=== PATIENT | female | born 1980 | race Caucasian/White ===

== ENCOUNTER 2023-01-19 20:24 | Outpatient (REF) | payer OTHER, SELFPAY ==
[2023-01-26 15:11] LABS: Age Gdln ACOG Testing Note (.); HPV Aptima Positive (Negative); IGP, Aptima HPV, rfx 16/18,45 Note (.)
== END 2023-01-19 20:25 | disposition home or self-care (01) ==
LOC: LAB 20:24
PROVIDERS: Visit Provider Obstetrics & Gynecology
DX: Z12.4 Encounter for screening for malignant neoplasm of cervix (principal)
CPT/HCPCS: 87624; G0145

== ENCOUNTER 2023-08-10 19:29 | Outpatient (REF) | payer OTHER, SELFPAY ==
[2023-08-18 02:07] LABS: HPV Aptima Positive (Negative); Pap IG (Image Guided) Note (.)
== END 2023-08-10 19:30 | disposition home or self-care (01) ==
LOC: LAB 19:29
PROVIDERS: Visit Provider Obstetrics & Gynecology
DX: Z01.42 Encounter for cervical smear to confirm findings of recent normal smear following initial abnormal smear (principal); R87.610 Atypical squamous cells of undetermined significance on cytologic smear of cervix (ASC-US); R87.810 Cervical high risk human papillomavirus (HPV) DNA test positive
CPT/HCPCS: 87624; G0145

== ENCOUNTER 2023-09-22 11:23 | Outpatient (OUT) | payer OTHER, SELFPAY ==
--- NOTE | 2023-09-22 11:31 | MM_ITS ---
Patient Name: MELVINA CORONADO MR#: [id number] : 1980 Exam Date: 09/22/2023 Ordering Doctor: DR Kevan Haskins . RADIOLOGY REPORT PROCEDURE: MM TOMOSYNTHESIS SCREENING BI COMPARISON: MG MAMM SCREEN 3D MAGNO CAD, 04/08/2021. MG MAMM SCREEN 3D MAGNO CAD, 05/13/2022. INDICATIONS: Screening Calculator Name NCI Breast Cancer Risk Assessment Tool 5 Year Breast Cancer Risk 0.60% Lifetime Breast Cancer Risk 8.80% Personal Breast Cancer No Personal Ovarian Cancer No Treatments None Family Cancers Grandmother-maternal with lung cancer at age ~70; Grandfather-paternal with prostate/colon cancer at age ~70. LOCATION: [facility] BREAST COMPOSITION: The breasts are heterogeneously dense,which may obscure small masses. FINDINGS: DIAGNOSTIC CATEGORY 2--BENIGN FINDING. NO CHANGE FROM COMPARISON. Scattered benign-appearing nodules are present. Scattered benign-appearing calcifications are present. Scattered benign-appearing lymph nodes are present. RIGHT BREAST: No significant suspicious finding. LEFT BREAST: No significant suspicious finding. RECOMMENDATIONS: ROUTINE MAMMOGRAM AND CLINICAL EVALUATION IN 12 MONTHS. PLEASE NOTE: A NORMAL MAMMOGRAM DOES NOT EXCLUDE THE POSSIBILITY OF BREAST CANCER. A CLINICALLY SUSPICIOUS PALPABLE LUMP SHOULD BE BIOPSIED. Dictated by: Naun Shetty MD on 09/22/2023 at 13:16 Approved by: Naun Shetty MD on 09/22/2023 at 13:18
== END 2023-09-22 11:24 | disposition home or self-care (01) ==
LOC: MAMMO 11:27
PROVIDERS: Visit Provider Obstetrics & Gynecology
DX: Z12.31 Encounter for screening mammogram for malignant neoplasm of breast (principal); Z80.1 Family history of malignant neoplasm of trachea, bronchus and lung; Z80.0 Family history of malignant neoplasm of digestive organs
CPT/HCPCS: 77063; 77067

== ENCOUNTER 2024-02-19 20:05 | Outpatient (REF) | payer OTHER, SELFPAY ==
--- OUTSIDE RECORDS SUMMARY | 2024-02-19 20:07 | XMS_ITS | CCD ---
Author Organization [facility] Care Team Providers Care Hose Tester Name Role Phone HÉCTOR ., DR MACDONALD Admitting Unavailable HÉCTOR ., DR MACDONALD Attending Unavailable HÉCTOR ., DR MACDONALD Consulting Unavailable ZIEBER, DR BAR Katz Consulting Unavailable HÉCTOR ., DR MACDONALD Admitting Unavailable HÉCTOR ., DR MACDONALD Attending Unavailable HÉCTOR ., DR MACDONALD Consulting Unavailable FREEMAN JACOME Attending Unavailable FREEMAN JACOME Referring Unavailable MARQUIS HERNANDEZ Primary Care Unavailable TORRES ANAYA Attending Unavailable Problems Active Problems Problem Classification Problem Date Documented Date Episodic/Chronic Immunizations and screening for infectious disease (2 sources) Encounter for screening for human papillomavirus (HPV); Translations: [Encounter for screening for infections with a predominantly sexual mode of transmission] Onset: 06-01-2022 Episodic Other female genital disorders (1 source) Other specified noninflammatory disorders of vagina; Translations: [OTH SPEC NONINFLAMMATORY D/O VAGINA] Onset: 06-01-2022 Episodic Other screening for suspected conditions (not mental disorders or infectious disease) (8 sources) Encounter for screening for malignant neoplasm of cervix; Translations: [Encounter for screening mammogram for malignant neoplasm of breast] Onset: 05-13-2022 Episodic Residual codes; unclassified (1 source) Family history of malignant neoplasm of trachea, bronchus and lung; Translations: [FAM HX MALIG NEOPLSM TRACH BRON LNG] Onset: 05-15-2022 Episodic Residual codes; unclassified (1 source) Family history of malignant neoplasm of digestive organs; Translations: [FAM HX MALIG NEOPLASM DIGESTIV ORGN] Onset: 05-15-2022 Episodic Past or Other Problems Problem Classification Problem Date Documented Da te Episodic/Chronic Calculus of urinary tract (1 source) Calculus of kidney; Translations: [Calculus of kidney] Onset: 07-05-2022 Episodic Results Test Name Value Interpretation Reference Range Facil ity XR ABDOMEN AP 1 VWon 024 XR ABDOMEN AP 1 VW XR ABDOMEN AP 1 VW XR ABDOMEN 1 VIEW HISTORY: Left-sided kidney stone COMPARISON: CT abdomen/pelvis 10/05/2022 IMPRESSION: * No radiopaque urinary tract stones. * Small calcified phleboliths in the pelvis. Finalized by Wang Cruz MD on 06/28/2023 8:15 AM Normal [facility] PAP ACOG PANEL 2: 30 to 65on 06-08-2022 . . Normal [facility] Comment on above: Result Comment: Perf ormed at: [facility] Performed By: #### [id number] #### [facility] [address] [address] [address] Kitty Arguello Age Gdln ACOG Testing 30-65 [facility] Comment on above: Performed By: #### [id number] #### [facility] [address] [address] [address] Kitty Arguello DIAGNOSIS: Comment Normal [facility] Comment on above: Result Comment: NEGA TIVE FOR INTRAEPITHELIAL LESION OR MALIGNANCY. Performed at: [facility] Performed By: #### [id number] #### [facility] [address] [address] [address] Kitty Arguello HPV Aptima Positive Abnormal Negative [facility] Comment on above: Result Comment: This nucleic acid amplification test detects fourteen high-risk HPV types (16,18,31,33,35,39,45,51,52,56,58,59,66,68) without differentiation. Performed at: =G Performed By: #### [id number] #### [facility] [address] [address] [address] Kitty Arguello HPV Genotype 16 Positive Abnormal Negative [facility] Comment on above: Performed By: #### [id number] #### [facility] [address] [place] [address] Dr. Kitty Arguello HPV Genotype 18,45 Negative Normal Negative [facility] Comment on above: Performed By: #### [id number] #### [facility] [address] [address] [address] Kitty Arguello HPV Genotype Reflex Comment Normal [facility] Comment on above: Result Comment: Guillermo choudhary, see HPV Genotype results. Performed at: [facility] Performed By: #### [id number] #### [facility] [address] [place] [address] Dr. Kitty Arguello Methodology: Comment Normal [facility] Comment on above: Result Comment: This liquid based ThinPrep(R) pap test was screened with the use of an image guided system. Performed at: [facility] Performed By: #### [id number] #### [facility] [address] [place] [address] Dr. Kitty Arguello Note: Comment Normal [facility] Comment on above: Result Comment: The Pap smear is a screening test designed to aid in the detection of premalignant and malignant conditions of the uterine cervix. It is not a diagnostic procedure and should not be used as the sole means of detecting cervical cancer. Both false-positive and false-negative reports do occur. . Performed at: [facility] Performed By: #### [id number] #### [facility] [address] [place] [address] Dr. Kitty Arguello Performed by: Comment Normal [facility] Comment on above: Result Comment: Austen Robles, [employer] ([employer]) Performed at: [facility] Performed By: #### [id number] #### [facility] [address] [place] [address] Dr. Kitty Arguello Specimen adequacy: Comment Normal [facility] Comment on above: Result Comment: Sati sfactory for evaluation. Endocervical and/or squamous metaplastic cells (endocervical component) are present. Performed at: [facility] Performed By: #### [id number] #### [facility] [address] [place] [address] Dr. Kitty Arguello CHLAMYDIA/GONOCOCCUS [facility] (SW AB/URINE/PAPon 06-02-2022 Neisseria gonorrhoeae, [facility] Negative Normal Negative [facility] Comment on above: Performed By: #### C T/NGNA #### [facility] [address] [place] [address] Dr. Kitty Arguello Chlamydia trachomatis, [facility] Negative Normal Negative [facility] Comment on above: Performed By: #### C T/NGNA #### [facility] [address] [address] [address] Kitty Arguello VAGINITIS/VAGINOSIS DNA PROB Sagar 06-02-2022 Yesika species Negative Normal Negative [facility] Comment on above: Performed By: #### V AGINT #### [facility] [address] [address] [address] Kitty Arguello Gardnerella vaginalis Negative Normal Negative [facility] Comment on above: Performed By: #### V AGINT #### [facility] [address] [address] [address] Kitty Arguello Trichomonas vaginalis Negative Normal Negative [facility] Comment on above: Performed By: #### V AGINT #### [facility] [address] [address] [address] Kitty Arguello MG MAMM SCREEN 3D MAGNO CADon 05-13-2022 MG MAMM SCREEN 3D MAGNO CAD Patient: MELVINA CORONADO Exam Date: 05/13/2022 : 1980 Gender:F Ordering : DR TORRES ANAYA . Admission #: [id number] Family : Order #: [id number] CLICK HERE TO VIEW EXAM RADIOLOGY REPORT PROCEDURE: MAMMOGRAM SCREENING 3D BILATERAL CAD COMPARISON: MG MAMM SCREEN 3D MAGNO CAD, 04/08/2021. INDICATIONS: Screening mammography Calculator Name NCI Breast Cancer Risk Assessment Tool 5 Year Breast Cancer Risk 0.50% Lifetime Breast Cancer Risk 9.00% Personal Breast Cancer No Personal Ovarian Cancer No Treatments None Family Cancers Grandmother-maternal with lung cancer at age 70; Grandfather-paternal with prostate/colon cancer at age 70. LOCATION: [facility] BREAST COMPOSITION: Heterogeneously dense,which may obscure small masses. FINDINGS: DIAGNOSTIC CATEGORY 2--BENIGN FINDING: RIGHT BREAST: No significant suspicious finding. No significant change has occurred. LEFT BREAST: No significant suspicious finding. Stable small benign appearing lymph node within the axillary tail. No significant change has occurred. RECOMMENDATIONS: ROUTINE MAMMOGRAM AND CLINICAL EVALUATION IN 12 MONTHS. PLEASE NOTE: A NORMAL MAMMOGRAM DOES NOT EXCLUDE THE POSSIBILITY OF BREAST CANCER. A CLINICALLY SUSPICIOUS PALPABLE LUMP SHOULD BE BIOPSIED. Dictated by: Bar Greenwood M.D. on 05/13/2022 at 09:15 Approved by: Bar Greenwood M.D. on 05/13/2022 at 09:18 Normal [facility] Encounters Encounter Date Encounter Type Care Provider Facility Start: 08-10-2023 End: 08-10-2023 ambulatory TORRES ANAYA Not Available Start: 06-27-2023 End: 06-28-2023 ambulatory FREEMAN JACOME [facility] Start: 05-31-2022 End: 05-31-[address] TORRES ANAYA . Facility: Start: 05-13-2022 End: 05-14-[address] TORRES ANAYA . Facility: Payers Date Payer Category Payer Unknown [id number] [id number] [id number] 1980 Unknown [id number] [id number] [id number] 1980 Unknown [id number] [id number] 1980 Unknown [id number] 2.16.84 [id number] 1959 Unknown [id number] Summary Purpose Family History No Family History Records FoundNo Family History Records FoundNo Family History Records Found Advance Directives No Advanced Directives Records FoundNo Advanced Directives Records FoundNo Advanced Directives Records Found Additional Source Comments INFORMATION SOURCE (unrecogn ized section and content) DATE CREATED AUTHOR 07/18/2022 [facility] DATE CREATED AUTHOR AUTHOR'S ORGANIZ ATION 07/05/2023 [facility] DATE CREATED AUTHOR AUTHOR'S ORGANIZ ATION 08/11/2023 [facility] EPIC FOR RECORDS PERTAINING TO PATIENTS WHO ARE OR HAVE BEEN ENROLLED IN A CHEMICAL DEPENDENCY/SUBSTANCEABUSE PROGRAM, SOME INFORMATION MAY BE OMITTED. This clinical summary was aggregated from multiple sources. Caution should be exercised in using it in the provision of clinical care. This summary normalizes information from multiple sources, and as a consequence, information in this document may materially change the coding, format and clinical context of patient data. In addition, data may be omitted in some cases. CLINICAL DECISIONS SHOULD BE BASED ON THE PRIMARY CLINICAL RECORDS. [facility]. provides no warranty or guarantee of the accuracy or completeness of information in this document.
== END 2024-02-19 20:06 | disposition home or self-care (01) ==
LOC: LAB 20:05
PROVIDERS: Visit Provider Obstetrics & Gynecology
DX: R87.610 Atypical squamous cells of undetermined significance on cytologic smear of cervix (ASC-US) (principal); R87.810 Cervical high risk human papillomavirus (HPV) DNA test positive
CPT/HCPCS: 87624; 88175

== ENCOUNTER 2024-10-14 20:50 | Outpatient (REF) | payer OTHER, SELFPAY ==
--- OUTSIDE RECORDS SUMMARY | 2024-10-14 21:05 | XMS_ITS | CCD ---
Author Organization [facility] Care Team Providers Care Upholsterer Apprentice Name Role Phone DIVINE ., DR MACDONALD Admitting Unavailable DIVINE ., DR MACDONALD Attending Unavailable DIVINE ., DR MACDONALD Consulting Unavailable ZIEBER, DR BAR Katz Consulting Unavailable DIVINE ., DR MACDONALD Admitting Unavailable DIVINE ., DR MACDONALD Attending Unavailable DIVINE ., DR MACDONALD Consulting Unavailable GENE FAN Attending Unavailable GENE FAN Referring Unavailable MARY SCOTT Primary Care Unavailable TORRES HASKINS Attending Unavailable TORRES HASKINS Attending Unavailable Unavailable Primary Care Provider UnavailMary Rodrigez MD Primary Care Provider [phone] Medications Current Medications Medication Drug Class(es) Dates Sig (Normalized) Sig (Original) Ethinyl Estradiol / Ferrous fumarate / Norethindrone (2 sources) Estrogen Start: 06-03-2021 take 1 tablet by mouth once daily norethindrone-e.e stradioL-iron 1 mg-20 mcg (24)/75 mg (4) capsule Take 1 tablet by mouth daily. 06/03/2021 Active Completed/Discontinued Medications Medication Drug Class(es) Dates Sig (Normalized) Sig (Original) Taysofy 1-20 MG-MCG(24) capsule (6 sources) Start: 06-30-2023 End: 10-14-2024 take 1 capsule by mouth once daily Taysofy 1-20 MG-MCG(24) capsule Indications: Well woman exam with routine gynecological exam TAKE 1 CAPSULE BY MOUTH EVERY DAY 84 capsule 6 06/30/2023 10/14/2024 Discontinued (Other) Start: 06-30-2023 take 1 capsule by [facility] once daily Taysofy 1-20 MG-MCG(24) capsule Indications: Well woman exam with routine gynecological exam TAKE 1 CAPSULE BY MOUTH EVERY DAY 84 capsule 6 06/30/2023 Active Problems Active Problems Problem Classification Problem Date Documented Date Episodic/Chronic Calculus of urinary tract (4 sources) Calculus of kidney; Translations: [Kidney stone] Onset: 06-10-2021 07-05-2024 Episodic Cancer of cervix (1 source) Atypical squamous cells of undetermined significance on cervical Papanicolaou smear; Translations: [Atypical squamous cells of undetermined significance on cytologic smear of cervix (ASC-US)] 02-19-2024 Episodic Immunizations and screening for infectious disease (3 sources) Encounter for screening for human papillomavirus (HPV); Translations: [Encounter for screening for infections with a predominantly sexual mode of transmission] Onset: 06-01-2022 02-19-2024 Episodic Other endocrine disorders (1 source) Disorder of endocrine system; Translations: [Endocrine disorder, unspecified] 10-14-2024 Episodic Other female genital disorders (1 source) Other specified noninflammatory disorders of vagina; Translations: [OTH SPEC NONINFLAMMATORY D/O VAGINA] Onset: 06-01-2022 Episodic Other female genital disorders (1 source) Vaginal discharge; Translations: [Other specified noninflammatory disorders of vagina] 02-19-2024 Episodic Other screening for suspected conditions (not mental disorders or infectious disease) (9 sources) Encounter for screening for malignant neoplasm [...] Classification Problem Date Documented Da te Episodic/Chronic Contraceptive and procreative management (6 sources) Patient encounter status; Translations: [Encounter for other general counseling and advice on contraception] Onset: 02-19-2024 02-19-2024 Episodic Results Test Name Value Interpretation Reference Range Facility PAP IG, APT HPV RFX 16/18,45 on 02-27-2024 HPV APTIMA Positive Abnormal Negative [facility] Comment on above: This nucleic acid am plification test detects fourteen high- risk HPV types (16,18,31,33,35,39,45,51,52,56,58,59,66,68) without differentiation. Performed at: - [address] [id number] [employer] Drier: Hamida Rodríguez MD, Phone: [phone] Performed at: - [facility] [id number] [employer]: Hamida Rodríguez MD, Phone: [phone] Interpretation and review of laboratory results Abnormal [facility] PAP IG (IMAGE GUIDED) Note Abnormal . [facility] Comment on above: TESTS RESULT FLAG UN ITS REF RANGE LAB Clinician Provided Cytology Information Source.............Cervix;Endocervix No. of containers..01 ThinPrep Vial DIAGNOSIS: [A] 01 EPITHELIAL CELL ABNORMALITY. LOW GRADE SQUAMOUS INTRAEPITHELIAL LESION (LSIL). ATYPICAL SQUAMOUS CELLS, CANNOT EXCLUDE HIGH-GRADE SQUAMOUS INTRAEPITHELIAL LESION (ASC-H). Specimen adequacy: 01 Satisfactory for evaluation. Endocervical and/or squamous metaplastic cells (endocervical component) are present. Performed by: 01 Danielle Rodríguez, Respiratory Care Technician (ASC) Electronically si... 01 Maddi Parada MD, Pathologist . 01 Pathologist ICD10: 01 R87.612, R87.611 Note: Note 01 The Pap smear is a screening test designed to aid in the detection of premalignant and malignant conditions of the uterine cervix. It is not a diagnostic procedure and should not be used as the sole means of detecting cervical cancer. Both false-positive and false-negative reports do occur. Test Methodology: Note 01 This liquid based ThinPrep(R) pap test was screened with the use of an image guided system. HPV Genotype Reflex Note 01 Criteria not met, HPV Genotype not performed. FLAG LEGEND: L-Low Normal,H-High Normal,LL-Alert Low,HH-Alert High <-Panic Low,>-Panic High,A-Abnormal,AA-Critical Abnormal Performed at: [address] [facility] [id number] Hamida Rodríguez MD, BRUSH-SPATULA CERVIX ENDOCERVIX [facility] URETHRITIS/DISCHARGE PLUS VA GINITIS (HTRX)on 02-20-2024 [facility] 0 [facility] AT[facility] VAGINAE Not detected [facility] BVAB 2,3 (BACTERIAL VAGINOSIS ASSOCIATED BACTERIA 2, 3); MOBILUNCUS SPP 0 [facility] BVAB 2,3 (BACTERIAL VAGINOSIS ASSOCIATED BACTERIA 2, 3); MOBILUNCUS SPP Not detected [facility] YESIKA ALBICANS, PARAPSILOSIS, TROPICALIS 0 [facility] YESIKA ALBICANS, PARAPSILOSIS, TROPICALIS Not detected [facility] YESIKA GLABRATA 0 [facility] YESIKA GLABRATA Not detected [facility] Not detected [facility] CHLAMYDIA TRACHOMATIS 0 [facility] CHLAMYDIA TRACHOMATIS Not detected [facility] GARDNERELLA VAGINALIS 0 [facility] GARDNERELLA VAGINALIS Not detected [facility] MEGASPHAERA (TYPES 1, 2) 0 [facility] MEGASPHAERA (TYPES 1, 2) Not detected [facility] MYCOPLASMA GENITALIUM 0 [facility] MYCOPLASMA GENITALIUM Not detected [facility] NEISSERIA GONORRHOEAE 0 [facility] NEISSERIA GONORRHOEAE Not detected [facility] TRICHOMONAS VAGINALIS 0 [facility] TRICHOMONAS VAGINALIS Not detected [facility] XR ABDOMEN AP 1 VWon 024 XR ABDOMEN AP 1 VW XR ABDOMEN AP 1 VW XR ABDOMEN 1 VIEW HISTORY: Left-sided kidney stone COMPARISON: CT abdomen/pelvis 10/05/2022 IMPRESSION: * No radiopaque urinary tract stones. * Small calcified phleboliths in the pelvis. Finalized by Wang Cruz MD on 06/28/2023 8:15 AM Normal [facility] PAP ACOG PANEL 2: 30 to 65on 06-08-[address] [facility] Comment on above: Result Comment: Perf ormed at: [facility] Performed By: #### [id number] #### [facility] [address] [address] [address] Kitty Arguello Age Gdln ACOG Testing 30-[address] [facility] Comment on above: Performed By: #### [id number] #### [facility] [address] [address] [address] Kitty Arguello DIAGNOSIS: Comment Normal [facility] Comment on above: Result Comment: NEGA TIVE FOR INTRAEPITHELIAL LESION OR MALIGNANCY. Performed at: [facility] Performed By: #### 4 [id number] #### [facility] [address] [address] [address] Kitty Arguello HPV Aptima Positive Abnormal Negative [facility] Comment on above: Result Comment: This nucleic acid amplification test detects fourteen high-risk HPV types (16,18,31,33,35,39,45,51,52,56,58,59,66,68) without differentiation. Performed at: =G Performed By: #### 4 [id number] #### [facility] [address] [address] [address] Kitty Arguello HPV Genotype 16 Positive Abnormal Negative [facility] Comment on above: Performed By: #### 4 [id number] #### [facility] [address] [address] [address] Kitty Arguello HPV Genotype 18,45 Negative Normal Negative [facility] Comment on above: Performed By: #### 4 [id number] #### [facility] [address] [address] [address] Kitty Arguello HPV Genotype Reflex Comment Normal [facility] Comment on above: Result Comment: Guillermo craft met, see HPV Genotype results. Performed at: [facility] Performed By: #### 4 [id number] #### [facility] [address] [place] [address] Dr. Kitty Arguello Methodology: Comment Normal [facility] Comment on above: Result Comment: This liquid based ThinPrep(R) pap test was screened with the use of an image guided system. Performed at: [facility] Performed By: #### 4 [id number] #### [facility] [address] [place] [address] Dr. Kitty Arguello Note: Comment Normal [facility] Comment on above: Result Comment: The Pap smear is a screening test designed to aid in the detection of premalignant and malignant conditions of the uterine cervix. It is not a diagnostic procedure and should not be used as the sole means of detecting cervical cancer. Both false-positive and false-negative reports do occur. . Performed at: [facility] Performed By: #### 4 [id number] #### [facility] [address] [place] [address] Dr. Kitty Arguello Performed by: Comment Normal [facility] Comment on above: Result Comment: Austen Robles, Respiratory Care Technician (ASCP) Performed at: [facility] Performed By: #### 4 [id number] #### [facility] [address] [place] [address] Dr. Kitty Arguello Specimen adequacy: Comment Normal [facility] Comment on above: Result Comment: Sati sfactory for evaluation. Endocervical and/or squamous metaplastic cells (endocervical component) are present. Performed at: [facility] Performed By: #### 4 [id number] #### [facility] [address] [address] [address] Kitty Arguello CHLAMYDIA/GONOCOCCUS [facility] (SW AB/URINE/PAPon 06-02-2022 Neisseria gonorrhoeae, [facility] Negative Normal Negative [facility] Comment on above: Performed By: #### C T/NGNA #### [facility] [address] [place] [address] Dr. Kitty Arguello Chlamydia trachomatis, [facility] Negative Normal Negative [facility] Comment on above: Performed By: #### C T/NGNA #### [facility] [address] [address] [address] Kitty Arguello VAGINITIS/VAGINOSIS DNA PROB Sagar 06-02-2022 Yesika species Negative Normal Negative [facility] Comment on above: Performed By: #### V AGINT #### [facility] [address] [address] [address] Kitty Arguello Gardnerella vaginalis Negative Normal Negative [facility] Comment on above: Performed By: #### V AGINT #### [facility] [address] [address] [address] Kitty Arguello Trichomonas vaginalis Negative Normal Negative [facility] Comment on above: Performed By: #### V AGINT #### [facility] [address] [address] [address] Kitty Arguello MG MAMM SCREEN 3D MAGNO CADon 05-13-2022 MG MAMM SCREEN 3D MAGNO CAD Patient: MELVINA CORONADO Exam Date: 05/13/2022 : 1980 Gender:F Ordering : DR TORRES HASKINS . Admission #: [id number] Family : Order #: [id number] CLICK HERE TO VIEW EXAM RADIOLOGY REPORT [...] prostate/colon cancer at age 70. LOCATION: [facility] BREAST COMPOSITION: Heterogeneously dense,which may obscure [...] Bar Greenwood M.D. on 05/13/2022 at 09:18 [facility] Vital Signs Date Time Vital Sign Value Performing Clinician Trista jackman 10-14-2024 14:16-0400 Body mass index (BMI) [Ratio] 25.15 kg/m2 Torres Divine DO Work Phone: [facility] 10-14-2024 14:16-0400 Body weight 70.67 kg Torres Divine DO Work Phone: [facility] 10-14-2024 14:16-0400 Diastolic blood pressure 70 mm[Hg] Torres Divine DO Work Phone: [facility] 10-14-2024 14:16-0400 Systolic blood pressure 112 mm[Hg] Torres Divine DO Work Phone: [facility] 02-19-2024 09:05-0400 Body mass index (BMI) [Ratio] 25.66 kg/m2 Torres Divine DO Work Phone: [facility] 02-19-2024 09:05-0400 Body weight 72.12 kg Torres Divine DO Work Phone: [facility] 02-19-2024 09:05-0400 Diastolic blood pressure 78 mm[Hg] Torres Divine DO Work Phone: [facility] 02-19-2024 09:05-0400 Systolic blood pressure 118 mm[Hg] Torres Divine DO Work Phone: [facility] Healthcare Encounters Encounter Date Encounter Type Care Provider Facility Start: 10-14-2024 End: 10-14-2024 Bamboo flowsheet Torres Divine DO Work Phone: [facility] Start: 10-14-2024 End: 10-14-2024 Bamboo flowsheet Torres Divine DO Work Phone: [facility] Start: 10-14-2024 End: 10-14-2024 Patient encounter procedure Torres Divine DO Work Phone: [facility] Work Phone: Start: 10-14-2024 End: 10-14-2024 Periodic preventive med est patient 40-64yrs Torres Divine DO Work Phone: [facility] Comment on above: Hormone disorder (Pr imary Dx); Well woman exam with routine gynecological exam; Breast cancer screening by mammogram Start: 07-05-2024 End: 07-05-2024 Orders Only Gene Fan MD Work Phone: [facility] Comment on above: Calculus of kidney ( Primary Dx) Start: 02-19-2024 End: 02-19-2024 Bamboo flowsheet Torres Divine DO Work Phone: [facility] Start: 02-19-2024 End: 02-27-2024 Bamboo flowsheet Torres Divine DO Work Phone: [facility] Start: 02-19-2024 End: 02-27-2024 [facility] Result Encounter Torres Divine DO Work Phone: [facility] Unsolicited Start: 02-19-2024 End: 02-20-2024 External Result Encounter Torres Divine DO Work Phone: [facility] Unsolicited Start: 02-19-2024 End: 02-19-2024 Office outpatient visit 15 minutes Torres Divine DO Work Phone: [facility] Comment on above: ASCUS with positive high risk HPV cervical; Screen for STD (sexually transmitted disease); Vaginal discharge; Sterilization consult Start: 02-19-2024 End: 02-19-2024 ambulatory TORRES DIVINE Not Available Start: 08-10-2023 End: 08-10-2023 ambulatory TORRES DIVINE Not Available Start: 06-27-2023 End: 06-28-2023 ambulatory GENE FAN [facility] Start: 05-31-2022 End: 05-31-[address] TORRES HASKINS . Facility: Start: 05-13-2022 End: 05-14-[address] TORRES HASKINS . Facility: Procedures Date Procedure Procedure Detail Performing Clinician Start: 02-19-2024 PAP IG, APT HPV RFX 16/18,45 Torres Haskins DO Work Phone: Start: 02-19-2024 URETHRITIS/DISCHARGE PLUS VAGINITIS (HTRX) Torres Haskins DO Work Phone: Plan of Treatment Date Care Activity Detail Author Start: 12-17-2024 End: 12-17-2024 Patient encounter procedure 12/17/2024 3:15 PM EDT Office Visit [facility] [address] [place] [phone] Gene Fan MD [address] [place], [place] [id number] [facility] Start: 10-14-2024 End: 10-14-2025 C-peptide C-peptide Lab Routine Hormone disorder Expected: 10/14/2024 (Approximate), Expires: 10/14/2025 [facility] Comment on above: Expected: 10/14/2024 (Approximate), Expires: 10/14/2025 Start: 10-14-2024 End: 10-14-2025 Cobalamin (Vitamin B12) [Mass/volume] in Serum or Plasma Vitamin B12 Lab Routine Hormone disorder Expected: 10/14/2024 (Approximate), Expires: 10/14/2025 [facility] Comment on above: Expected: 10/14/2024 (Approximate), Expires: 10/14/2025 Start: 10-14-2024 End: 10-14-2025 Cortisol free Cortisol, free Lab Routine Hormone disorder Expected: 10/14/2024 (Approximate), Expires: 10/14/2025 [facility] Comment on above: Expected: 10/14/2024 (Approximate), Expires: 10/14/2025 Start: 10-14-2024 End: 10-14-2025 Glucose [Mass/volume] in Serum or Plasma Glucose, random Lab Routine Hormone disorder Expected: 10/14/2024 (Approximate), Expires: 10/14/2025 [facility] Comment on above: Expected: 10/14/2024 (Approximate), Expires: 10/14/2025 Start: 10-14-2024 End: 10-14-2025 Insulin, total Insulin, total Lab Routine Hormone disorder Expected: 10/14/2024 (Approximate), Expires: 10/14/2025 [facility] Comment on above: Expected: 10/14/2024 (Approximate), Expires: 10/14/2025 Start: 10-14-2024 End: 12-14-2025 MG Breast - bilateral Screening Bilateral screening mammogram Imaging Routine Breast cancer screening by mammogram Expected: 10/14/2024 (Approximate), Expires: 12/14/2025 [facility] Work Phone: Comment on above: Expected: 10/14/2024 (Approximate), Expires: 12/14/2025 Start: 10-14-2024 End: 10-14-2024 Patient encounter procedure 10/14/2024 2:00 PM EDT Procedure Visit [facility] [address] [place] [phone] Torres Haskins DO [address] [place] [address] Arrived [facility] Comment on above: Arrived Start: 10-14-2024 End: 10-14-2025 Serotonin serum Serotonin serum Lab Routine Hormone disorder Expected: 10/14/2024 (Approximate), Expires: 10/14/2025 [facility] Healthcare Comment on above: Expected: 10/14/2024 (Approximate), Expires: 10/14/2025 Start: 10-14-2024 End: 10-14-2025 Thyroglobulin Thyroglobulin Lab Routine Hormone disorder Expected: 10/14/2024 (Approximate), Expires: 10/14/2025 [facility] Comment on above: Expected: 10/14/2024 (Approximate), Expires: 10/14/2025 Start: 10-14-2024 End: 10-14-2025 Thyroglobulin Antibody Thyroglobulin Antibody Lab Routine Hormone disorder Expected: 10/14/2024 (Approximate), Expires: 10/14/2025 [facility] Comment on above: Expected: 10/14/2024 (Approximate), Expires: 10/14/2025 Start: 10-14-2024 End: 10-14-2025 Thyrotropin [Units/volume] in Serum or Plasma [facility] Comment on above: Ordered: 10/14/2024 Expected: 10/14/2024 (Approximate), Expires: 10/14/2025 Start: 07-09-2024 End: 07-09-2024 Patient encounter procedure 07/09/2024 11:45 AM EST Office Visit [facility] [address] [place] [phone] Gene Fan MD [address] [place] [id number] [facility] Start: 07-05-2024 End: 07-05-2025 XR Abdomen AP X-ray abdomen ap 1 view Imaging Routine Calculus of kidney Expected: 07/05/2024, Expires: 07/05/2025 [facility] Work Phone: Comment on above: Expected: 07/05/2024 , Expires: 07/05/2025 Start: 03-25-2024 End: 03-25-2024 Patient encounter procedure 03/25/2024 8:50 AM EST Consult [facility] [address] [place] [phone] Torres Haskins, DO [address] [place], [place] [phone] [facility] Start: 02-19-2024 End: 02-19-2024 Patient encounter procedure 02/19/2024 8:50 AM EDT Procedure Visit [facility] [address] [place] [phone] Torres Haskins, [address] [place] [address] Arrived [facility] Comment on above: Arrived Start: 01-07-2024 Influenza vaccination Influenza Vacc ine [facility] Start: 10-06-2023 Adult BMI Screening Adult BMI Screen ing [facility] Start: 10-06-2023 Tobacco Screening Tobacco Screening [facility] Start: 2001 Screening for malign ant neoplasm of cervix Pap Smear [facility] Start: 08-18-1999 DTaP,Tdap and Td Vac cines (1 - Tdap) DTaP,Tdap and Td Vaccines ( - Tdap) [facility] Start: 1992 Depression Screening Depression Scre ening [facility] CHLAMYDIA TRACHOMATI S (GENITO/STI) CHLAMYDIA TRACHOMATIS (GENITO/STI) Lab Routine Screen for STD (sexually transmitted disease) Vaginal discharge Ordered: 02/19/2024 [facility] Healthcare Comment on above: Ordered: 02/19/2024 DHEA-sulfate DHEA-sulfate Lab Routine Hormone disorder Ordered: 10/14/2024 [facility] Healthcare Comment on above: Ordered: 10/14/2024 Estradiol Estradiol Lab Ro utine Hormone disorder Ordered: 10/14/2024 [facility] Work Phone: Comment on above: Ordered: 10/14/2024 Estrone Estrone Lab Rout ine Hormone disorder Ordered: 10/14/2024 [facility] Healthcare Comment on above: Ordered: 10/14/2024 Ferritin [Mass/volum e] in Serum or Plasma Ferritin Lab Routine Hormone disorder Ordered: 10/14/2024 [facility] Comment on above: Ordered: 10/14/2024 Hemoglobin A1c/Hemoglobin.total in Blood Hemoglobin A1c Lab Routine Hormone disorder Ordered: 10/14/2024 [facility] Comment on above: Ordered: 10/14/2024 Neisseria gonorrhoea e DNA [Presence] in Unspecified specimen by [facility] with probe detection Neisseria gonorrhea DNA probe, direct Lab Routine Screen for STD (sexually transmitted disease) Vaginal discharge Ordered: 02/19/2024 [facility] Comment on above: Ordered: 02/19/2024 Progesterone Progesterone Lab Routine Hormone disorder Ordered: 10/14/2024 [facility] Comment on above: Ordered: 10/14/2024 Sex hormone binding globulin Sex hormone binding globulin Lab Routine Hormone disorder Ordered: 10/14/2024 [facility] Comment on above: Ordered: 10/14/2024 SURESWAB(R) ADVANCED VAGINITIS PLUS, TMA SURESWAB(R) ADVANCED VAGINITIS PLUS, TMA Pathology and Cytology Routine Screen for STD (sexually transmitted disease) Vaginal discharge Ordered: 02/19/2024 [facility] Comment on above: Ordered: 02/19/2024 T3, reverse T3, reverse Lab Routine Hormone disorder Ordered: 10/14/2024 [facility] Comment on above: Ordered: 10/14/2024 TESTOSTERONE, FREE TESTOSTERONE, FREE Lab Routine Hormone disorder Ordered: 10/14/2024 [facility] Comment on above: Ordered: 10/14/2024 Testosterone, free, total Testos terone, free, total Lab Routine Hormone disorder Ordered: 10/14/2024 [facility] Comment on above: Ordered: 10/14/2024 THIN PREP TIS PAP AN D HR HPV DNA THIN PREP TIS PAP AND HR HPV DNA Pathology and Cytology Routine ASCUS with positive high risk HPV cervical Ordered: 02/19/2024 [facility] Work Phone: Comment on above: Ordered: 02/19/2024 THIN PREP TIS PAP AN D HR HPV DNA THIN PREP TIS PAP AND HR HPV DNA Pathology and Cytology Routine Well woman exam with routine gynecological exam Ordered: 10/14/2024 [facility] Comment on above: Ordered: 10/14/2024 Thyroid peroxidase antibody Thyroid peroxidase antibody Lab Routine Hormone disorder Ordered: 10/14/2024 [facility] Comment on above: Ordered: 10/14/2024 Thyroxine (T4) free [Mass/volume] in Serum or Plasma T4, free Lab Routine Hormone disorder Ordered: 10/14/2024 [facility] Comment on above: Ordered: 10/14/2024 Triiodothyronine (T3 ) Free [Mass/volume] in Serum or Plasma T3, free Lab Routine Hormone disorder Ordered: 10/14/2024 [facility] Comment on above: Ordered: 10/14/2024 Vitamin D 1,25 dihydroxy Vitamin D 1,25 dihydroxy Lab Routine Hormone disorder Ordered: 10/14/2024 [facility] Comment on above: Ordered: 10/14/2024 Immunizations Immunization Date Immunization Notes Care Provider Renan Garcia-30-2023 influenza virus vaccine, unspecified formulation Gene Fan MD Work Phone: [facility] Payers Date Payer Category Payer Managed Care HMO (unspecified) [id number] 2019 Commercial Managed C are - HMO [employer] [id number] 1980 Unknown [id number] 1980 Unknown [id number] .[id number] 1980 Unknown [id number] .[id number] 1980 Unknown [id number] 1980 Unknown [id number] 1959 Unknown [id number] Social History Date Type Detail Facility Start: 01-10-2023 End: 02-19-2024 Tobacco smoking status NHIS Ex-smoker [facility] History of tobacco use Current smoker [facility] History of tobacco use Cigarette Smoker [facility] Start: 08-10-2023 End: 02-19-2024 Alcoholic beverage intake Current drinker of alcohol (finding) [facility] Start: 01-19-2023 End: 08-10-2023 History of Social function [facility] Start: 01-19-2023 End: 08-10-2023 Tobacco use panel [facility] Start: 01-10-2023 Alcohol Comment Occasional alcohol u se [facility] Start: 1980 Sex assigned at Not on file [facility] Start: 02-24-2021 Tobacco smoking stat [facility] Never smoked tobacco [facility] Start: 02-24-2021 Tobacco use and exposure Smokeless tobacco non-user [facility] Childcare Unknown [facility] Start: 12-09-2014 Sex Female (finding) [facility] Clinical Notes 02-19-2024 to 10-14-2024 Cindy Esteban NP - 10/14/2024 2:00 PM EDTTelephone Encounter - Vannessa Rodriguez LPN - 07/05/2024 9:11 AM ESTTelephone Encounter - Gene Fan MD - 07/05/2024 9:11 AM EST Note Date & Type Note Facility 10-14-2024 History of Presen t illness Narrative Reason for Appointment: Patient ID: Melvina Coronado is a 44 y.o. female who presents for Well Women Visit Patient presents today for Annual Exam. MEDICATIONS No current outpatient medications ALLERGIES No Known Allergies PROBLEMS Active Ambulatory Problems Diagnosis Date Noted Sterilization consult 02/19/2024 Resolved Ambulatory Problems Diagnosis Date Noted No Resolved Ambulatory Problems Past Medical History: Diagnosis Date BMI 25.0-25.9,adult Cervical high risk human papillomavirus (HPV) DNA test positive Encounter for IUD removal Family planning Vaginal discharge Yeast infection HISTORY PAST MEDICAL HISTORY SOCIAL HISTORY Past Medical History: Diagnosis Date BMI 25.0-25.9,adult Cervical high risk human papillomavirus (HPV) DNA test positive HPV test positive Encounter for IUD removal Family planning Vaginal discharge Yeast infection Social History Tobacco Use Smoking status: Former Current packs/day: 0.00 Types: Cigarettes Smokeless tobacco: Not on file Substance Use Topics Alcohol use: Yes Comment: Occasional alcohol use Drug use: Never FAMILY HISTORY Family History Problem Relation Name Age of Onset Hypertension Mother Nani Hypertension Father Josiah Cancer Maternal Grandmother Annel Cancer Paternal Grandfather Toni SURGICAL HISTORY Past Surgical History: Procedure Laterality Date APPENDECTOMY 1991 DERMOID CYST EXCISION 1992 [facility] MAMMOGRAPHY 05/13/2022 negative PAP SMEAR 06/21/2016 negative REVIEW OF SYSTEMS Review of Systems: Review of Systems Constitutional: Positive for fatigue and hot flashes. HENT: Negative. Eyes: Negative. Respiratory: Negative. Cardiovascular: Negative. Gastrointestinal: Negative. Genitourinary: Negative. Musculoskeletal: Negative. Skin: Negative. Neurological: Negative. All other systems reviewed and are negative. Hematological: Negative. Allergic/Immunologic: Negative. OBJECTIVE Objective: Physical Exam Constitutional: Appearance: Normal appearance. She is well-developed. Genitourinary: Vulva normal. Breasts: Breasts are soft. Right: Normal. Left: Normal. Cardiovascular: Rate and Rhythm: Normal rate and regular rhythm. Pulmonary: Effort: Pulmonary effort is normal. Breath sounds: Normal breath sounds. Abdominal: General: Bowel sounds are normal. There is no distension. Palpations: Abdomen is soft. Tenderness: There is no abdominal tenderness. There is no guarding or rebound. Musculoskeletal: General: No swelling. Normal range of motion. Right lower leg: No edema. Left lower leg: No edema. Neurological: Mental Status: She is alert and oriented to person, place, and time. Skin: General: Skin is warm and dry. Psychiatric: Mood and Affect: Mood normal. Behavior: Behavior normal. Vitals and nursing note reviewed. Exam conducted with a wetland scientist present. Vitals: Estimated body mass index is 25.15 kg/m as calculated from the following: Height as of 02/07/23: 5' 6 . Weight as of this encounter: 155 lb 12.8 oz. BP: 112/70 No LMP recorded. ASSESSMENT & PLAN ICD-10-CM 1. Well woman exam with routine gynecological exam Z01.419 THIN PREP TIS PAP AND HR HPV DNA 2. Breast cancer screening by mammogram Z12.31 Bilateral screening mammogram Bilateral screening mammogram Annual Exam: Patient presents today for an annual exam. Patient states she is doing well and has no complaints. Pap was obtained without difficulty. Orders Placed This Encounter Procedures Bilateral screening mammogram Follow Up: Patient is to return in one year for annual unless needed otherwise. Hx of LGSIL + will continue to monitor PAP if continues LGSIL the plan is to move forward with leep procedure. Patient reports generalized fatigue and hot flashes and would like hormone levels evaluated. Buderer labs will be obtain as well as a B12 level. Documented by Cindy Esteban NP on behalf of: Torres Haskins DO documented in this encounter [facility] 07-05-2024 Miscellaneous Notes Formattin g of this note might be different from the original. Dr. Fan, Pt. Has appt with you on 07-09-24. Last office visit notes states that she needs a KUB and to return in 2 years for follow up. Last KUB was 06/27/2023, do you need an updated KUB for the appt on Monday? If so, if you order the KUB, I will give her a call. Please advise, thank you, Vannessa She needs a kub. Order placed Thank you. I attempted to contact her and received a recording stating that her mailbox is full at this time. Unable to leave a voicemail. Will try again. Contacted the Pt. Again. Pt. Did answer, after informing her of the new KUB ordered, she stated that she was going to have to reschedule as she thought her appt was on Monday. 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 Pt. Was rescheduled to 12-17-24 at 3:15 pm she said she should be able to get that day off since it is so far ahead of time. No other questions at this time. documented in this encounter [facility] 07-05-[address] er Note Dr. Fan, Pt. Has appt with you on 07-09-24. Last office visit notes states that she needs a KUB and to return in 2 years for follow up. Last KUB was 06/27/2023, do you need an updated KUB for the appt on Monday? If so, if you order the KUB, I will give her a call. Please advise, thank you, Vannessa [facility] 07-05-2024 Telephone encount er Note She needs a kub. Order placed [facility] 07-05-2024 Telephone encount er Note Thank you. I attempted to contact her and received a recording stating that her mailbox is full at this time. Unable to leave a voicemail. Will try again. [facility] 07-05-2024 Telephone encount er Note Contacted the Pt. Again. Pt. Did answer, after informing her of the new KUB ordered, she stated that she was going to have to reschedule as she thought her appt was on Monday. 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 Pt. Was rescheduled to 12-17-24 at 3:15 pm she said she should be able to get that day off since it is so far ahead of time. No other questions at this time. [facility] 02-19-2024 History of Presen t illness Narrative Reason for Appointment: Patient ID: Melvina Coronado is a 43 y.o. female who presents for Abnormal Pap Smear Patient presents today for Repeat Pap. MEDICATIONS Current Outpatient Medications Medication Instructions Taysofy 1-20 MG-MCG(24) capsule 1 capsule, Oral, Daily ALLERGIES No Known Allergies PROBLEMS Active Ambulatory Problems Diagnosis Date Noted No Active Ambulatory Problems Resolved Ambulatory Problems Diagnosis Date Noted No Resolved Ambulatory Problems Past Medical History: Diagnosis Date BMI 25.0-25.9,adult Cervical high risk human papillomavirus (HPV) DNA test positive Encounter for IUD removal Family planning Vaginal discharge Yeast infection HISTORY PAST MEDICAL HISTORY SOCIAL HISTORY Past Medical History: Diagnosis Date BMI 25.0-25.9,adult Cervical high risk human papillomavirus (HPV) DNA test positive HPV test positive Encounter for IUD removal Family planning Vaginal discharge Yeast infection Social History Tobacco Use Smoking status: Former Current packs/day: 0.00 Types: Cigarettes Smokeless tobacco: Not on file Substance Use Topics Alcohol use: Yes Comment: Occasional alcohol use Drug use: Never FAMILY HISTORY Family History Problem Relation Name Age of Onset Hypertension Mother Nani Hypertension Father Josiah Cancer Maternal Grandmother Annel Cancer Paternal Grandfather Toni SURGICAL HISTORY Past Surgical History: Procedure Laterality Date APPENDECTOMY 1991 DERMOID CYST EXCISION 1991 [facility] MAMMOGRAPHY 05/13/2022 negative PAP SMEAR 06/21/2016 negative REVIEW OF SYSTEMS Review of Systems: Review of Systems All other systems reviewed and are negative. OBJECTIVE Objective: Physical Exam Constitutional: Appearance: Normal appearance. She is well-developed. Genitourinary: Vulva normal. Cardiovascular: Rate and Rhythm: Normal rate and regular rhythm. Pulmonary: Effort: Pulmonary effort is normal. Breath sounds: Normal breath sounds. Abdominal: General: Bowel sounds are normal. There is no distension. Palpations: Abdomen is soft. Tenderness: There is no abdominal tenderness. There is no guarding or rebound. Musculoskeletal: General: No swelling. Normal range of motion. Right lower leg: No edema. Left lower leg: No edema. Neurological: Mental Status: She is alert and oriented to person, place, and time. Skin: General: Skin is warm and dry. Psychiatric: Mood and Affect: Mood normal. Behavior: Behavior normal. Vitals and nursing note reviewed. Exam conducted with a wetland scientist present. Vitals: Estimated body mass index is 25.66 kg/m as calculated from the following: Height as of 02/07/23: 5' 6 . Weight as of this encounter: 159 lb. BP: 118/78 No LMP recorded. ASSESSMENT & PLAN ICD-10-CM 1. ASCUS with positive high risk HPV cervical R87.610 THIN PREP TIS PAP AND HR HPV DNA R87.810 CANCELED: THIN PREP TIS PAP AND HR HPV DNA 2. Screen for STD (sexually transmitted disease) Z11.3 SURESWAB(R) ADVANCED VAGINITIS PLUS, TMA CHLAMYDIA TRACHOMATIS (GENITO/STI) Neisseria gonorrhea DNA probe, direct 3. Vaginal discharge N89.8 SURESWAB(R) ADVANCED VAGINITIS PLUS, TMA CHLAMYDIA TRACHOMATIS (GENITO/STI) Neisseria gonorrhea DNA probe, direct Repeat Pap: Patient presents today for a repeat pap. Previous pap results were reviewed and noted to be LGSIL and + HPV. Question regarding previous results were discussed. Repeat Pap was obtained without difficulty. Patient voiced that she had stopped her control due to not having intercourse for at least a year. Patient recently had intercourse and would also like to have STD testing along with repeat PAP. Patient desires permanent sterilization. Follow Up: Patient is to return to the office in 6 months for an annual exam. Documented by Viky Benavides LPN on behalf of: Torres Haskins DO documented in this encounter [facility] Evaluation note Diagnosis ASCUS with positive high risk HPV cervical Screen for STD (sexually transmitted disease) Screening examination for venereal disease Vaginal discharge Leukorrhea, not specified as infective Sterilization consult Other general counseling and advice for contraceptive management documented in this encounter [facility] HealthcareEvaluation note* Diagnosis Calculus of kidney- Primary [facility] Diagnosis Hormone disorder- Primary Unspecified endocrine disorder Well woman exam with routine gynecological exam Routine gynecological examination Breast cancer screening by mammogram documented in this encounter [facility] HealthcareInstructionsNot on filedocumented in this encounterProHolmes County [facility] SystemInstructionsNot on filedocumented in this encounterOhio[facility] Summary Purpose Family History No Family History Records FoundNo Family History Records FoundNo Family History Records Found Advance Directives No Advanced Directives Records FoundNo Advanced Directives Records FoundNo Advanced Directives Records Found Additional Source Comments INFORMATION SOURCE (unrecogn ized section and content) DATE CREATED AUTHOR 07/18/2022 [facility] DATE CREATED AUTHOR AUTHOR'S ORGANIZ ATION 07/05/2023 [facility] DATE CREATED AUTHOR AUTHOR'S ORGANIZ ATION 02/20/2024 [facility] EPIC Reason for Visit (unrecogniz ed section and content) Reason Comments Abnormal Pap Smear Reason Comments Well Women Visit Care Teams (unrecognized sec tion and content) Upholsterer Apprentice Relationship Specialty Start Date End Date Mary Scott MD PCP - General Family Medicine 06/15/21 Upholsterer Apprentice Relationship Specialty Start Date End Date Mary Scott MD PCP - General Family Medicine 06/15/21 FOR RECORDS PERTAINING TO PATIENTS WHO ARE [...] BE BASED ON THE PRIMARY CLINICAL RECORDS. [facility] [employer] [facility]. provides no warranty or guarantee of the accuracy or completeness of information in this document.
== END 2024-10-14 20:51 | disposition home or self-care (01) ==
LOC: LAB 20:50
PROVIDERS: Visit Provider Obstetrics & Gynecology
DX: Z01.419 Encounter for gynecological examination (general) (routine) without abnormal findings (principal)
CPT/HCPCS: 87624; 88175

== ENCOUNTER 2025-03-28 08:52 | Outpatient (OUT) | payer OTHER, SELFPAY ==
--- OUTSIDE RECORDS SUMMARY | 2025-03-28 08:55 | XMS_ITS | Clinical Summary ---
Author Organization [employer] tem Address [id number] [address] [place] [address] Care Team Providers Care Certification Engineer Name Role Phone Mary Scott MD Primary Care Provider [phone] Allergies No known active allergies Medications MedicationSigDispense QuantityRefillsLast FilledStart DateEnd DateStatus norethindrone-e.estradioL-iron 1 mg-20 mcg (24)/75 mg (4) capsule Take 1 tablet by mouth daily.06/03/2021ctive Active Problems ProblemNoted DateDiagnosed DateCalculus of stilmh9306/10/2021 Overview (07/05/2022): 06/15/21: 2 mm right UVJ stone as well as bilateral lower pole 2 [address] nonobstructing stones on CT June 05, 2021 Today we talked about ways to decrease stone recurrences including increased hydration (more than 2.5 liters or urine output per day), avoidance of Western diet and not changing calcium consumption. Also discussed metabolic workup which she would like to not do for now. Recheck kub 1 year 07/05/22: No new stones on kub. I think the distal calcification is a phlebolith. Recheck 2 year with kub Encounters DateTypeDepartmentCare PcrbPrexywunxic81/17/2025Travelfrom Last 3 Months Family History Medical HistoryRelationNameCommentsKidney diseaseFatherKidney diseaseMother RelationNameStatusCommentsFatherAliveMotherAlive Social History Tobacco UseTypesPacks/DayYears UsedDateSmoking Tobacco: NeverSmokeless Tobacco: NeverChildcareAnswerDate GfxuuesjNbckqxggdWcandgu90/09/2020EmploymentAnswerDate EacbmwstDqdojsqrwqFrlofml09/09/2020Hunger ScreeningAnswerDate RecordedWithin the past 12 months we worried whether our food would run out before we got money to buy more.Never True10/05/2022Within the past 12 months the food we bought just didn't last and we didn't have money to get more.Never True3Purpose - LifeAnswerDate RecordedPurpose and direction in akwjUonywff72/02/2021 CommentsNoSex and Gender InformationValueDate RecordedSex Assigned at BirthNot on fileLegal UciWhpwtb07/04/2015 2:35 PM EDTGender IdentityNot on fileSexual OrientationNot on file Last Filed Vital Signs Vital SignReadingTime TakenCommentsBlood Jwobpmph456/64010/05/2022 10:16 AM EDT Tihdi524310/05/2022 7:47 AM IXBVaarwqltwxe25.3 ??C (97.4 ??F)10/05/2022 7:47 AM EDTRespiratory Sccw062810/05/2022 7:47 AM EDTOxygen Pmfwsavoju013%10/05/2022 7:47 AM EDTInhaled Oxygen Concentration--Pigdgu79.6 kg (160 lb)10/05/2022 7:47 AM EDT Ryjped312.6 cm (5' 6 )06/15/2021 2:54 PM ESTBody Mass Index25.8206/15/2021 2:54 PM EST Plan of Treatment Health MaintenanceDue DateLast DoneCommentsDepression Dqompouvv39/12/1993Tobacco Ikmcymjtr90/12/1993DTaP,Tdap and Td Vaccines (1 - Tdap)08/18/1999Pap Smear 2001Adult BMI Hizcbloig44/Influenza Qcnxelq1201/06/2025 02/18/2024, 03/06/2023, 04/27/2015, Additional history exists Medical Devices Not on file Procedures Procedure NamePriorityDate/TimeAssociated DiagnosisCommentsEXTRA REDRoutine 01/22/2025 2:03 PM EDT Endocrine disorder, unspecified TESTOSTERONE, FREE AND TOTAL, FEMALE OR PCZTVLCAYibjgmz90/17/2025 1:53 PM EDT Endocrine disorder, unspecified C-PEPTIDE, COzdomzx98/17/2025 1:53 PM EDT Endocrine disorder, unspecified GLUCOSE RANDOM OR VTXZYRIQbupaux15/17/2025 1:53 PM EDT Endocrine disorder, unspecified THYROGLOBULIN QUANTITATIVE W/ANTIBODY (TUMOR MARKER)Kmzqaoz1401/22/2025 1:53 PM EDT Endocrine disorder, unspecified SEROTONIN NXIBUUcsqois52/17/2025 1:53 PM EDT Endocrine disorder, unspecified CORTISOL, SRVBBocelav49/17/2025 1:53 PM EDT Endocrine disorder, unspecified HEMOGLOBIN Z1XSvdgata98/17/2025 1:53 PM EDT Endocrine disorder, unspecified THYROID PEROXIDASE ZCBLVNXTEzmfxth87/17/2025 1:53 PM EDT Endocrine disorder, unspecified T3, IVQEFpciknx21/17/2025 1:53 PM EDT Endocrine disorder, unspecified DDXLOGADBcgilqk05/17/2025 1:53 PM EDT Endocrine disorder, unspecified DIHYDROXYVITAMIN D 1-25, LEtxbxor50/17/2025 1:53 PM EDT Endocrine disorder, unspecified QKLIXGVOLPRHPwngysc83/17/2025 1:53 PM EDT Endocrine disorder, unspecified T3 REVERSE, EQrjgryx82/17/2025 1:53 PM EDT Endocrine disorder, unspecified THYROID PROFILE INCLUDES TSH WU3Neeioyl74/17/2025 1:53 PM EDT Endocrine disorder, unspecified SEX HORMONE BINDING PIJSZMUURpdrnzs01/17/2025 1:53 PM EDT Endocrine disorder, unspecified DHEA-FHNQWWGJisrmtp42/17/2025 1:53 PM EDT Endocrine disorder, unspecified ESTRONE, FFddogpd13/17/2025 1:53 PM EDT Endocrine disorder, unspecified TNLOFNGISNawqici33/17/2025 1:53 PM EDT Endocrine disorder, unspecified VITAMIN A66Ljbiwhh30/17/2025 1:53 PM EDT Endocrine disorder, unspecified YTUIETANynbfnq19/17/2025 1:53 PM EDT Endocrine disorder, unspecified from Last 3 Months Results * Extra Red (01/22/2025 2:03 PM EDT)ComponentValueRef RangeTest MethodAnalysis TimePerformed AtPathologist SignatureExtra TubeAuto Odculxjn92/17/2025 7:01 PM [facility] LABORATORYSpecimen (Source)Anatomical Location / LateralityCollection Method / VolumeCollection TimeReceived TimeBloodVenous blood / UnknownVenipuncture / Aocutxs9401/22/2025 2:03 PM EDT01/22/2025 2:03 PM EDT Narrative Authorizing ProviderResult TypeResult StatusCindy Esteban TELEVISION RECEIVER ANALYZER-CNPLAB BLOOD ORDERABLESFinal ResultPerforming OrganizationAddressCity/State/ZIP CodePhone Number [facility] [address] [place] [address], * T3 Reverse, S (01/22/2025 1:53 PM EDT)ComponentValueRef RangeTest Method Analysis TimePerformed AtPathologist SignatureT3(TRIIODOTHYRONINE), REVERSE, S 2410 - 24 ng/dL01/24/2025 9:13 AM EDCLEVELAND CLINIC [facility] LABORATORIESComment: ADDITIONAL INFORMATION This test was developed and its performance characteristics determined by [facility] in a manner consistent with CLIA requirements. This test has not been cleared or approved by the U.S. Food and Drug Administration. Test Performed by: [facility] [place] [facility] [place] [id number] [employer] Test Engineer: Shanelle Parra Ph.D.; CLIA# [id number] Specimen (Source)Anatomical Location / LateralityCollection Method / Volume Collection TimeReceived TimeBloodVenous blood / UnknownVenipuncture / Unknown 01/22/2025 1:53 PM EDT01/22/2025 1:53 PM EDT Narrative Authorizing ProviderResult TypeResult StatusCindy Esteban APRN-CNPAMY ORDERABLESFinal ResultPerforming OrganizationAddressCity/State/ZIP CodePhone Number [facility] [address] [place] [address], [place] * Estrone, S (01/22/2025 1:53 PM EDT)ComponentValueRef RangeTest MethodAnalysis TimePerformed AtPathologist SignatureESTRONE,S76pg/mL01/24/2025 1:55 PM EDT [facility] LABORATORIESComment: REFERENCE VALUE Premenopausal :17-200 Postmenopausal : 7-40 ADDITIONAL INFORMATION This test was developed and its performance characteristics determined by [facility] in a manner consistent with CLIA requirements. This test has not been cleared or approved by the U.S. Food and Drug Administration. Test Performed by: [facility] [place] - [address] [address] [employer] Test Engineer: Shanelle Parra Ph.D.; CLIA# [id number] Specimen (Source)Anatomical Location / LateralityCollection Method / Volume Collection TimeReceived TimeBloodVenous blood / UnknownVenipuncture / Unknown 01/22/2025 1:53 PM EDT01/22/2025 1:53 PM EDT Narrative Authorizing ProviderResult TypeResult StatusKrsumita Eulalia TELEVISION RECEIVER ANALYZER-CNPLAB BLOOD ORDERABLESFinal ResultPerforming OrganizationAddressty/State/ZIP CodePhone Number [facility] [address] [place] [address], * 1,25-Dihydroxyvitamin D, S (01/22/2025 1:53 PM EDT)ComponentValueRef RangeTest MethodAnalysis TimePerformed AtPathologist Signature1,25-DIHYDROXYVITAMIN D, S 3518 - 78 pg/mL01/26/2025 1:59 PM [facility]Comment: ADDITIONAL INFORMATION This test was developed and its performance characteristics determined by [facility] in a manner consistent with CLIA requirements. This test has not been cleared or approved by the U.S. Food and Drug Administration. Test Performed by: [place] [address] [employer] Test Engineer: Shanelle Parra Ph.D.; CLIA# [id number] Specimen (Source)Anatomical Location / LateralityCollection Method / Volume Collection TimeReceived TimeBloodVenous blood / UnknownVenipuncture / Unknown 01/22/2025 1:53 PM EDT01/22/2025 1:53 PM EDT Narrative Authorizing ProviderResult TypeResult StatusCindy Esteban TELEVISION RECEIVER ANALYZER-CNPLAB BLOOD ORDERABLESFinal ResultPerforming OrganizationAddressOhio[facility] CodePhone Number [facility] [address] [place] [address], * C-peptide, s (01/22/2025 1:53 PM EDT)ComponentValueRef RangeTest Method Analysis TimePerformed AtPathologist SignatureC-PEPTIDE, S3.51.1 - 4.4 ng/mL 01/23/2025 10:08 AM [facility]ORATORIESComment: ADDITIONAL INFORMATION Reference interval applies to fasting patients. Test Performed by: [place] [address] [employer] Test Engineer: Shanelle Parra Ph.D.; CLIA# [id number] Specimen (Source)Anatomical Location / LateralityCollection Method / Volume Collection TimeReceived TimeBloodVenous blood / UnknownVenipuncture / Unknown 01/22/2025 1:53 PM EDT01/22/2025 1:53 PM EDT Narrative Authorizing ProviderResult TypeResult StatusCindy Esteban TELEVISION RECEIVER ANALYZER-CNPLAB BLOOD ORDERABLESFinal ResultPerforming OrganizationAddressCity/State/ZIP CodePhone Number [facility] [address] [place] [address], [place] * Testosterone, Free and Total, Female or Children (01/22/2025 1:53 PM EDT) ComponentValueRef RangeTest MethodAnalysis TimePerformed AtPathologist SignatureTESTOSTERONE BY MASS FKIU016 - 55 ng/dL01/27/2025 7:50 PM EDTARUP LABORATORIESComment: REFERENCE INTERVAL: Testosterone by Cook Dinner Females Premenopausal ??9-55 ng/dL Postmenopausal 5-32 ng/dL INTERPRETIVE INFORMATION: Testosterone by Cook Dinner Free or bioavailable testosterone measurements may provide supportive information. For individuals on testosterone-suppressing hormone therapies (e.g., antiandrogens or estrogens), refer to cisgender female reference intervals. For a complete set of all established reference intervals, refer to [employer]/Tests/Pub/[id number]. This test was developed and its performance characteristics determined by [facility]. It has not been cleared or approved by the [place] Food and Drug Administration. This test was performed in a CLIA certified laboratory and is intended for clinical purposes. TESTOSTERONE, FREE BY MASS SPEC3.21.1 - 5.8 pg/mL01/27/2025 7:50 PM EDTARUP LABORATORIESComment: REFERENCE INTERVAL: Testosterone, Free by Cook Dinner Females Postmenopausal: 0.6 - 3.8 pg/mL INTERPRETIVE INFORMATION: Testosterone, Free by Cook Dinner Free testosterone concentration is calculated using total testosterone (measured by mass spectrometry) and the binding constant of testosterone and sex hormone-binding globulin (SHBG). For individuals on testosterone-suppressing hormone therapies (e.g., antiandrogens or estrogens), refer to cisgender female reference intervals. For a complete set of all established reference intervals, refer to [employer]/Tests/Pub/[id number]. This test was developed and its performance characteristics determined by [facility]. It has not been cleared or approved by the US Food and Drug Administration. This test was performed in a CLIA certified laboratory and is intended for clinical purposes. Performed By: [facility] [address] [place], [place] [id number] Collar Sewer: Margarito Dorantes MD, PhD CLIA Number: [id number] SEX HORMONE BINDING FMFKHLRM3222 - 122 nmol/L01/27/2025 7:50 PM EDTARUP LABORATORIESComment: REFERENCE INTERVAL: Sex Hormone Binding Globulin Access complete set of age- and/or gender-specific reference intervals for this test in the [facility] Test Directory ([employer] Specimen (Source)Anatomical Location / LateralityCollection Method / Volume Collection TimeReceived TimeBloodVenous blood / UnknownVenipuncture / Unknown 01/22/2025 1:53 PM EDT01/22/2025 1:53 PM EDT Narrative Authorizing ProviderResult TypeResult StatusCindy Eulalia Picplum BLOOD ORDERABLESFinal ResultPerforming OrganizationAddressCity/State/ZIP CodePhone Number [employer] [address] [place] [address] * Thyroid profile includes TSH FT4 (01/22/2025 1:53 PM EDT)ComponentValueRef RangeTest MethodAnalysis TimePerformed AtPathologist SignatureFREE T40.820.61 - 1.60 ng/dL01/22/2025 8:01 PM [facility] LABORATORYTSH0.60 0.49 - 4.67 uIU/mL01/22/2025 8:01 PM [facility] Specimen (Source)Anatomical Location / LateralityCollection Method / Volume Collection TimeReceived TimeBloodVenous blood / UnknownVenipuncture / Unknown 01/22/2025 1:53 PM EDT01/22/2025 1:53 PM EDT Narrative Authorizing ProviderResult TypeResult StatusCindy Esteban TELEVISION RECEIVER ANALYZERGreenway HealthLAB BLOOD ORDERABLESFinal ResultPerforming OrganizationAddressCity/State/ZIP CodePhone Number [facility] [address] [place] [address], * Sex hormone binding globulin (01/22/2025 1:53 PM EDT)ComponentValueRef Range Test MethodAnalysis TimePerformed AtPathologist SignatureSEX HORMONE BINDING AUOUSBLX59.418.2 - 135.5 nmol/L01/22/2025 8:12 PM EDLIMA MEMORIAL [facility] LABORATORYComment: PT TYPE ? AGE ?RANGE MALES ?20-50Y ?13.3-89.5 mmol/L FEMALES ?20-46Y ?18.2-135.5 mmol/L FEMALES POSTMENO ? 47-91Y ?16.8-125.2 mmol/L Specimen (Source)Anatomical Location / LateralityCollection Method / Volume Collection TimeReceived TimeBloodVenous blood / UnknownVenipuncture / Unknown 01/22/2025 1:53 PM EDT01/22/2025 1:53 PM EDT Narrative Authorizing ProviderResult TypeResult StatusCindy Esteban TELEVISION RECEIVER ANALYZER-CNPLAB BLOOD ORDERABLESFinal ResultPerforming OrganizationAddressCity/State/ZIP CodePhone Number [facility] [address] [place] [address], * Cortisol, Free (01/22/2025 1:53 PM EDT)ComponentValueRef RangeTest Method Analysis TimePerformed AtPathologist SignatureCORTISOL,FREE0.33ug/dL09/ 7:27 PM EDTARUP LABORATORIESComment: 18 years of age and older: 8-10 a.m. collection: 0.21-1.04 ug/dL 4-6 p.m. collection: ??0.10-0.63 ug/dL INTERPRETIVE INFORMATION: Cortisol, Free by Equilibrium ?Dialysis/LC-MS/MS This test was developed and its performance characteristics determined by [facility]. It has not been cleared or approved by the US Food and Drug Administration. This test was performed in a CLIA certified laboratory and is intended for clinical purposes. Performed By: [employer] [address] [place] [address] Collar Sewer: Margarito Dorantes MD, PhD [place] Number: [id number] Specimen (Source)Anatomical Location / LateralityCollection Method / Volume Collection TimeReceived TimeBloodVenous blood / UnknownVenipuncture / Unknown 01/22/2025 1:53 PM EDT01/22/2025 1:53 PM EDT Narrative Authorizing ProviderResult TypeResult StatusCindy Esteban TELEVISION RECEIVER ANALYZER-[facility]LAB BLOOD ORDERABLESFinal ResultPerforming OrganizationAddressCity/State/ZIP CodePhone Number [address] * Thyroid peroxidase antibody (01/22/2025 1:53 PM EDT)ComponentValueRef Range Test MethodAnalysis TimePerformed AtPathologist SignatureTHYROPEROXIDASE AB<1 <10 IU/mL01/22/2025 8:10 PM [facility] LABORATORYSpecimen (Source)Anatomical Location / LateralityCollection Method / VolumeCollection TimeReceived TimeBloodVenous blood / UnknownVenipuncture / Hknpbse9201/22/2025 1:53 PM EDT01/22/2025 1:53 PM EDT Narrative Authorizing ProviderResult TypeResult StatusCindy Eulalia TELEVISION RECEIVER ANALYZER-CNPLAB BLOOD ORDERABLESFinal ResultPerforming OrganizationAddressCity/State/ZIP CodePhone Number [facility] [address] [place] [address], * Thyroglobulin quantitative w/antibody (tumor marker) (01/22/2025 1:53 PM EDT) ComponentValueRef RangeTest MethodAnalysis TimePerformed AtPathologist DtrzopuanPXHOZWKNHUEBR93.2<=35.0 ng/mL01/22/2025 8:33 PM [facility] LABORATORYTHYROGLOBULIN AB<1<4 IU/mL01/22/2025 8:33 PM [facility]ORATORYSpecimen (Source)Anatomical Location / Laterality Collection Method / VolumeCollection TimeReceived TimeBloodVenous blood / UnknownVenipuncture / Yimxoph0601/22/2025 1:53 PM EDT01/22/2025 1:53 PM EDT Narrative [facility] - 01/22/2025 8:33 PM EDT Quantitation of Thyroglobulin may be unreliable due to the presence of Anti-Thyroglobulin antibodies. The results cannot be interpreted as absolute evidence for the presence or absence of malignant disease. Authorizing ProviderResult TypeResult StatusCindy Esteban TELEVISION RECEIVER ANALYZER-[facility] BLOOD ORDERABLESFinal ResultPerforming OrganizationAddressCity/State/ZIP CodePhone Number [facility] [address] [place] [address], * Progesterone (01/22/2025 1:53 PM EDT)ComponentValueRef RangeTest Method Analysis TimePerformed AtPathologist SignaturePROGESTERONE4.2ng/mL01/22/2025 8:10 PM [facility]ORATORYComment: FEMALES: 1st Tri: ??4.7-50.7 ng/ml 2nd Tri: ??19.4-45.3 ng/ml ? MENSTRUATING FEMALES: Follicular: ??0.3-1.5 ng/ml Mid Luteal: ??5.2-18.6 ng/ml Post Sita: <0.1-0.8 ng/ml Specimen (Source)Anatomical Location / LateralityCollection Method / Volume Collection TimeReceived TimeBloodVenous blood / UnknownVenipuncture / Unknown 01/22/2025 1:53 PM EDT01/22/2025 1:53 PM EDT Narrative Authorizing ProviderResult TypeResult StatusCindy Esteban TELEVISION RECEIVER ANALYZER-CNPLAB BLOOD ORDERABLESFinal ResultPerforming OrganizationAddressCity/State/ZIP CodePhone Number [facility] [address] [place] [address], * Insulin (01/22/2025 1:53 PM EDT)ComponentValueRef RangeTest MethodAnalysis TimePerformed AtPathologist RwugpqpuwWSKZFYS26.951.00 - 23.00 uIU/mL01/22/2025 8:18 PM [facility]ORATORYSpecimen (Source)Anatomical Location / LateralityCollection Method / VolumeCollection TimeReceived Time BloodVenous blood / UnknownVenipuncture / Estdphw9001/22/2025 1:53 PM EDT 01/22/2025 1:53 PM EDT Narrative [facility] - 01/22/2025 8:18 PM EDT Ref. range is for FASTING NON-DIABETIC POPULATION. Authorizing ProviderResult TypeResult StatusBennyandreina Fentonerly TELEVISION RECEIVER ANALYZER-CNPLAB BLOOD ORDERABLESFinal ResultPerforming OrganizationAddressCity/State/ZIP CodePhone Number [facility] [address] [place] [address], * (ABNORMAL) DHEA-sulfate (01/22/2025 1:53 PM EDT)ComponentValueRef RangeTest MethodAnalysis TimePerformed AtPathologist SignatureDHEA S344(H)19 - 231 ug/dL 01/22/2025 8:07 PM [facility]YSpecimen (Source) Anatomical Location / LateralityCollection Method / VolumeCollection Time Received TimeBloodVenous blood / UnknownVenipuncture / Nzjqfhh0001/22/2025 1:53 PM EDT01/22/2025 1:53 PM EDT Narrative Authorizing ProviderResult TypeResult StatusCindy Fentonerly TELEVISION RECEIVER ANALYZER-CNPLAB BLOOD ORDERABLESFinal ResultPerforming OrganizationAddressCity/State/ZIP CodePhone Number [facility] [address] [place] [address], * Estradiol (01/22/2025 1:53 PM EDT)ComponentValueRef RangeTest MethodAnalysis TimePerformed AtPathologist OlvqjxychXQIDNOJKS06.0pg/mL01/22/2025 8:33 PM EDT [facility]YSpecimen (Source)Anatomical Location / LateralityCollection Method / VolumeCollection TimeReceived TimeBloodVenous blood / UnknownVenipuncture / Ojuramc8101/22/2025 1:53 PM EDT01/22/2025 1:53 PM EDT Narrative [facility] - 01/22/2025 8:33 PM EDT NON- FEMALES Mid follicular: 25-115 pg/mL Ovulatory Peak: 32.1-517 pg/mL Mid Luteal: 36.5-246 pg/mL Post-Menopausal Females: <15.0-25.1 pg/mL (Not on hormone therapy) The Access Sensitive Estradiol assay results are not intended to be used to measure the effectiveness of exogeneous Estradiol supplementation, for example, when the patient is on hormone replacement therapy. The presence of estradiol drug analogues and their metabolites could have an impact on estradiol recovery when using this assay. Authorizing ProviderResult TypeResult StatusCindy Esteban APRNSPRINGFIELD H[facility]PITAL BLOOD ORDERABLESFinal ResultPerforming OrganizationAddressCity/State/ZIP CodePhone Number [facility] [address] [place] [address], * T3, free (01/22/2025 1:53 PM EDT)ComponentValueRef RangeTest MethodAnalysis TimePerformed AtPathologist SignatureFREE T33.172.50 - 3.90 pg/mL01/22/2025 8:10 PM EDTTMARIETTA OSTEOPATHIC CLINIC LABORATORYSpecimen (Source)Anatomical Location / LateralityCollection Method / VolumeCollection TimeReceived Time BloodVenous blood / UnknownVenipuncture / Moiqqaz0501/22/2025 1:53 PM EDT 01/22/2025 1:53 PM EDT Narrative Authorizing ProviderResult TypeResult StatusCindy Esteban APRN-CNPLAB BLOOD ORDERABLESFinal ResultPerforming OrganizationAddressCity/State/ZIP CodePhone Number [facility] [address] [place] [address], * Serotonin serum (01/22/2025 1:53 PM EDT)ComponentValueRef RangeTest Method Analysis TimePerformed AtPathologist MonmvjiagOIAWXONIB67204 - 220 ng/mL 01/28/2025 4:15 PM EDTACHINLE COMPREHENSIVE HEALTH CARE FACILITY LABORATORIESComment: TEST INFORMATION: Serotonin, Serum This test was developed and its performance characteristics determined by [facility]. It has not been cleared or approved by the US Food and Drug Administration. This test was performed in a CLIA certified laboratory and is intended for clinical purposes. Performed By: [facility] [address] [place] [address] Collar Sewer: Margarito Dorantes MD, PhD CLIA Number: [id number] Specimen (Source)Anatomical Location / LateralityCollection Method / Volume Collection TimeReceived TimeBloodVenous blood / UnknownVenipuncture / Unknown 01/22/2025 1:53 PM EDT01/22/2025 1:53 PM EDT Narrative Authorizing ProviderResult TypeResult StatusCindy Esteban APRN-CNPLAB BLOOD ORDERABLESFinal ResultPerforming OrganizationAddressCity/State/ZIP CodePhone Number [facility] [address] [place] [address], * Hemoglobin A1c (01/22/2025 1:53 PM EDT)ComponentValueRef RangeTest Method Analysis TimePerformed AtPathologist SignatureHEMOGLOBIN A1C5.14.4 - 5.6 % 01/22/2025 8:36 PM EDTTMARIETTA OSTEOPATHIC CLINIC LABORATORYComment: ?ADA Guidelines ?Result ?HgbA1c ? Normal : ? less than 5.7 % ? Prediabetes : ?5.7 % ??to 6.4 % Diabetes : > 6.4 % ?Use with caution in patients with abnormal hemoglobin variants as ??the half-life of red blood cells and in vivo glycation rates are ??affected. EST. AVERAGE YSDDQOY106el/dL01/22/2025 8:36 PM [facility] LABORATORYSpecimen (Source)Anatomical Location / LateralityCollection Method / VolumeCollection TimeReceived TimeBloodVenous blood / UnknownVenipuncture / Wvrvsut8801/22/2025 1:53 PM EDT01/22/2025 1:53 PM EDT Narrative Authorizing ProviderResult TypeResult StatusCindy Esteban TELEVISION RECEIVER ANALYZER-CNPLAB BLOOD ORDERABLESFinal ResultPerforming OrganizationAddressCity/State/ZIP CodePhone Number [facility] [address] [place] [id number], * Glucose (01/22/2025 1:53 PM EDT)ComponentValueRef RangeTest MethodAnalysis TimePerformed AtPathologist OsdpczowwKXQNIIQ6518 - 99 mg/dL01/22/2025 8:17 PM [facility]ORATORYSpecimen (Source)Anatomical Location / LateralityCollection Method / VolumeCollection TimeReceived TimeBloodVenous blood / UnknownVenipuncture / Gdguxjr1601/22/2025 1:53 PM EDT01/22/2025 1:53 PM EDT Narrative Authorizing ProviderResult TypeResult StatusCindy Esteban TELEVISION RECEIVER ANALYZER-CNPLAB BLOOD ORDERABLESFinal ResultPerforming OrganizationAddressCity/State/ZIP CodePhone Number [facility] [address] [place] [address], * Ferritin (01/22/2025 1:53 PM EDT)ComponentValueRef RangeTest MethodAnalysis TimePerformed AtPathologist AdpfuhtkyAPDKBNOZ23639 - 307 ng/mL01/22/2025 8:13 PM [facility] LAB[facility]YSpecimen (Source)Anatomical Location / LateralityCollection Method / VolumeCollection TimeReceived TimeBloodVenous blood / UnknownVenipuncture / Yiiaowm6001/22/2025 1:53 PM EDT01/22/2025 1:53 PM EDT Narrative Authorizing ProviderResult TypeResult StatusCindy Fentonerly TELEVISION RECEIVER ANALYZER-CNPLAB BLOOD ORDERABLESFinal ResultPerforming OrganizationAddressCity/State/ZIP CodePhone Number [facility] [address] [place] [address], * (ABNORMAL) Vitamin B12 (01/22/2025 1:53 PM EDT)ComponentValueRef RangeTest MethodAnalysis TimePerformed AtPathologist SignatureVITAMIN B12>1,500(H)180 - 914 pg/mL01/22/2025 8:09 PM [facility] LABORATORYSpecimen (Source)Anatomical Location / LateralityCollection Method / VolumeCollection TimeReceived TimeBloodVenous blood / UnknownVenipuncture / Jfvzuaa3001/22/2025 1:53 PM EDT01/22/2025 1:53 PM EDT Narrative Authorizing ProviderResult TypeResult StatusBennyandreina Fentonerly TELEVISION RECEIVER ANALYZER-CNPLAB BLOOD ORDERABLESFinal ResultPerforming OrganizationAddressCity/State/ZIP CodePhone Number [facility] [address] [place] [address], from Last 3 Months Insurance Care Teams Team MemberRelationshipSpecialtyStart DateEnd Date Mary Scott MD [facility]
--- OUTSIDE RECORDS SUMMARY | 2025-03-28 08:55 | XMS_ITS | Clinical Summary ---
Author Organization [facility] Address [address] [place] [address] Care Team Providers Care Iap Displays Analyst Name Role Phone Unavailable Primary Care Provider Unavailabl e Allergies No known active allergies Medications No known medications Active Problems ProblemNoted DateDiagnosed DateSterilization tmtpxfu4302/19/2024 Family History Medical HistoryRelationNameCommentsHypertensionFatherLonnyCancerMaternal GrandmotherLucilleHypertensionMotherLesiaCancerPaternal GrandfatherJackRelation VepwEnvvdeWtxuelbvQtvbwil1AcmcplezJxpjzAxyiugDhzstTyilmsbg GrandmotherLucille MotherLesiaPaternal PdekvwvgiyoTouoVidxbo6MgiXmbfp Social History Tobacco UseTypesPacks/DayYears UsedDateSmoking Tobacco: FormerCigarettes Tobacco Cessation:Counseling Given: Not Answered Alcohol UseStandard Drinks/WeekCommentsYes0 (1 standard drink = 0.6 oz pure alcohol)Occasional alcohol useCommentsNoSex and Gender InformationValue Date RecordedSex Assigned at BirthNot on fileLegal BztUawens22/15/2023 11:47 PM EDTGender IdentityNot on fileSexual OrientationNot on file Last Filed Vital Signs Vital SignReadingTime TakenCommentsBlood Xhygtsyk792/70010/14/2024 2:16 PM EDT Pulse--Temperature--Respiratory Rate--Oxygen Saturation--Inhaled Oxygen Concentration--Hlzgms04.7 kg (155 lb 12.8 oz)10/14/2024 2:16 PM XQZTebgas297.6 cm (5' 6 )02/07/2023 9:55 AM EDTBody Mass Index25.151 9:55 AM EDT Plan of Treatment Not on file Procedures Procedure NamePriorityDate/TimeAssociated DiagnosisCommentsCORTISOL, FREERoutine 01/22/2025 1:53 PM EDT SEROTONIN XKXTYHuawfwn07/17/2025 1:53 PM EDT TESTOSTERONE, FREE AND TOTAL, FEMALE OR CHILDREN ([facility])Nbptgwf7901/22/2025 1:53 PM EDT 1,25-DIHYDROXYVITAMIN D, OQyvbzid38/17/2025 1:53 PM EDT ESTRONE, GWyblfec17/17/2025 1:53 PM EDT T3 REVERSE, PRrdcmpr69/17/2025 1:53 PM EDT C-PEPTIDE, JBlifffa59/17/2025 1:53 PM EDT HEMOGLOBIN P2XFfdqyhn17/17/2025 1:53 PM EDT UOIWMZIHLVRCZBxsylei29/17/2025 1:53 PM EDT VAKKJFOAIKgekxcq05/17/2025 1:53 PM EDT INSULIN ([facility])Mvywcos8801/22/2025 1:53 PM EDT GLUCOSE ([facility])Qvwcgpe9701/22/2025 1:53 PM EDT KTLTDJYIFdzzttc50/17/2025 1:53 PM EDT SEX HORMONE BINDING BJRPOMLITsdcrde53/17/2025 1:53 PM EDT EHVDHRYFSAQAGgutrof43/17/2025 1:53 PM EDT THYROID PEROXIDASE HWKAPTQZAXEsoeyfh59/17/2025 1:53 PM EDT T3, OCFHReimsee95/17/2025 1:53 PM EDT VITAMIN F91Kqnbfqk28/17/2025 1:53 PM EDT DHEA AHQZYROHqmbccm80/17/2025 1:53 PM EDT GVZFwwwasf03/17/2025 1:53 PM EDT from Last 3 Months Results * T3 REVERSE, S (01/22/2025 1:53 PM EDT)ComponentValueRef RangeTest Method Analysis TimePerformed AtPathologist SignatureT3 (Triiodothyronine), Reverse, S2410 - 24 ng/dLPROMEDICAComment: ADDITIONAL INFORMATION This test was developed and its performance characteristics determined by [facility] in a manner consistent with CLIA requirements. This test has not been cleared or approved by the U.S. Food and Drug Administration. Test Performed by: [facility] [place] [address] Medical Administrative Assistant: Shanelle Parra Ph.D.; CLIA# [id number] Specimen (Source)Anatomical Location / LateralityCollection Method / Volume Collection TimeReceived Time01/22/2025 1:53 PM EDT01/22/2025 6:53 PM EDT Narrative Authorizing ProviderResult TypeResult StatusCindy Esteban [facility] BLOOD ORDERABLESFinal ResultPerforming OrganizationAddressCity/State/ZIP CodePhone Number [facility] * 1,25-DIHYDROXYVITAMIN D, S (01/22/2025 1:53 PM EDT)ComponentValueRef RangeTest MethodAnalysis TimePerformed AtPathologist Signature1,25-DIHYDROXYVITAMIN D, S 3518 - 78 pg/mLPROMEDICAComment: ADDITIONAL INFORMATION This test was developed and its performance characteristics determined by [facility] in a manner consistent with CLIA requirements. This test has not been cleared or approved by the U.S. Food and Drug Administration. Test Performed by: [facility] - [place] [id number] Medical Administrative Assistant: Shanelle Parra Ph.D.; CLIA# [id number] Specimen (Source)Anatomical Location / LateralityCollection Method / Volume Collection TimeReceived Time01/22/2025 1:53 PM EDT01/22/2025 6:53 PM EDT Narrative Authorizing ProviderResult TypeResult StatusGipisjason Eulalia [employer] BLOOD ORDERABLESFinal ResultPerforming OrganizationAddDepartment of [facility] CodePhone Number [facility] * C-PEPTIDE, S (01/22/2025 1:53 PM EDT)ComponentValueRef RangeTest Method Analysis TimePerformed AtPathologist SignatureC-PEPTIDE, S3.51.1 - 4.4 ng/mL [facility]omment: ADDITIONAL INFORMATION Reference interval applies to fasting patients. Test Performed by: [place] [id number] Medical Administrative Assistant: Shanelle Parra Ph.D.; CLIA# [id number] Specimen (Source)Anatomical Location / LateralityCollection Method / Volume Collection TimeReceived Time01/22/2025 1:53 PM EDT01/22/2025 6:53 PM EDT Narrative Authorizing ProviderResult TypeResult StatusBennysumitjason [facility] BLOOD ORDERABLESFinal ResultPerforming OrganizationSon[facility] CodePhone Number [facility] * ESTRONE, S (01/22/2025 1:53 PM EDT)ComponentValueRef RangeTest MethodAnalysis TimePerformed AtPathologist SignatureESTRONE, S76pg/mLPROMEDICAComment: REFERENCE VALUE Premenopausal :17-200 Postmenopausal : 7-40 ADDITIONAL INFORMATION This test was developed and its performance characteristics determined by [facility] in a manner consistent with CLIA requirements. This test has not been cleared or approved by the U.S. Food and Drug Administration. Test Performed by: [facility] [address] [place] [address] Medical Administrative Assistant: Shanelle Parra Ph.D.; CLIA# [id number] Specimen (Source)Anatomical Location / LateralityCollection Method / Volume Collection TimeReceived Time01/22/2025 1:53 PM EDT01/22/2025 6:53 PM EDT Narrative Authorizing ProviderResult TypeResult StatusKrmiddletown emergency department Eulalia NPLAB BLOOD ORDERABLESFinal ResultPerforming OrganizationAddressty/State/ZIP CodePhone Number [facility] * GLUCOSE ([facility]) (01/22/2025 1:53 PM EDT)ComponentValueRef RangeTest Method Analysis TimePerformed AtPathologist MmtmjpmeoJhbaywc6017 - 99 mg/dL[facility] Comment: ?? PERFORMED AT [address] [address] Specimen (Source)Anatomical Location / LateralityCollection Method / Volume Collection TimeReceived Time01/22/2025 1:53 PM EDT01/22/2025 6:53 PM EDT Narrative Authorizing ProviderResult TypeResult StatusKrVirtua [facility] NPLAB BLOOD ORDERABLESFinal ResultPerforming OrganizationAddressty/State/ZIP CodePhone Number [facility] * INSULIN ([facility]) (01/22/2025 1:53 PM EDT)ComponentValueRef RangeTest Method Analysis TimePerformed AtPathologist CpuvaylciFTZYMXX44.951.00 - 23.00 uIU/mL [facility]AComment: Ref. range is for FASTING NON-DIABETIC POPULATION. ?? PERFORMED AT [address] [address] Specimen (Source)Anatomical Location / LateralityCollection Method / Volume Collection TimeReceived Time01/22/2025 1:53 PM EDT01/22/2025 6:53 PM EDT Narrative Authorizing ProviderResult TypeResult StatusCindy Esteban LAB BLOOD ORDERABLESFinal ResultPerforming OrganizationAddressCity/State/ZIP CodePhone Number [facility] * TESTOSTERONE, FREE AND TOTAL, FEMALE OR CHILDREN ([facility]) (01/22/2025 1:53 PM EDT)ComponentValueRef RangeTest MethodAnalysis TimePerformed AtPathologist SignatureTESTOSTERONE, FEMALE OR NUFDDCQT052 - 55 ng/dLPROMEDICAComment: REFERENCE INTERVAL: Testosterone by Junior Copywriter Females Premenopausal ??9-55 ng/dL Postmenopausal 5-32 ng/dL INTERPRETIVE INFORMATION: Testosterone by Junior Copywriter Free or bioavailable testosterone measurements may provide supportive information. For individuals on testosterone-suppressing hormone therapies (e.g., antiandrogens or estrogens), refer to cisgender female reference intervals. For a complete set of all established reference intervals, refer to [employer]/Tests/Pub/[id number]. This test was developed and its performance characteristics determined by [facility]. It has not been cleared or approved by the US Food and Drug Administration. This test was performed in a CLIA certified laboratory and is intended for clinical purposes. FREE TESTOSTERONE, FEMALE OR CHILDREN3.21.1 - 5.8 pg/mLPROMEDICAComment: REFERENCE INTERVAL: Testosterone, Free by Junior Copywriter Females Postmenopausal: 0.6 - 3.8 pg/mL INTERPRETIVE INFORMATION: Testosterone, Free by Junior Copywriter Free testosterone concentration is calculated using total testosterone (measured by mass spectrometry) and the binding constant of testosterone and sex hormone-binding globulin (SHBG). For individuals on testosterone-suppressing hormone therapies (e.g., antiandrogens or estrogens), refer to cisgender female reference intervals. For a complete set of all established reference intervals, refer to [employer]/Tests/Pub/[id number]. This test was developed and its performance characteristics determined by [facility]. It has not been cleared or approved by the US Food and Drug Administration. This test was performed in a CLIA certified laboratory and is intended for clinical purposes. Performed By: [facility] [address] [place] [address] Strap Making Machine Operator: Margarito Dorantes MD, PhD CLIA Number: [id number] SEX HORMONE BINDING GLOBULIN, FEMALE OR QEXJBXQJ8303 - 122 nmol/LPROM[facility] Comment: REFERENCE INTERVAL: Sex Hormone Binding Globulin Access complete set of age- and/or gender-specific reference intervals for this test in the [facility] Test Directory ([employer]). Specimen (Source)Anatomical Location / LateralityCollection Method / Volume Collection TimeReceived Time01/22/2025 1:53 PM EDT01/22/2025 6:53 PM EDT Narrative Authorizing ProviderResult TypeResult StatusCindy Eulalia LAB BLOOD ORDERABLESFinal ResultPerforming OrganizationAddressCity/State/ZIP CodePhone Number [facility] * Sex hormone binding globulin (01/22/2025 1:53 PM EDT)ComponentValueRef Range Test MethodAnalysis TimePerformed AtPathologist SignatureSEX HORMONE BINDING BIPJNYFU73.418.2 - 135.5 nmol/LPROMEDICAComment: PT TYPE ? AGE ?RANGE MALES ?20-50Y ?13.3-89.5 mmol/L FEMALES ?20-46Y ?18.2-135.5 mmol/L FEMALES POSTMENO ? 47-91Y ?16.8-125.2 mmol/L ?? PERFORMED AT [facility] [address],[place] [address] Specimen (Source)Anatomical Location / LateralityCollection Method / Volume Collection TimeReceived Time01/22/2025 1:53 PM EDT01/22/2025 6:53 PM EDT Narrative Authorizing ProviderResult TypeResult StatusCindy Esteban NPLAB BLOOD ORDERABLESFinal ResultPerforming OrganizationAddressty/State/ZIP CodePhone Number [facility] * Thyroid peroxidase antibody (01/22/2025 1:53 PM EDT)ComponentValueRef Range Test MethodAnalysis TimePerformed AtPathologist SignatureTHYROPEROXIDASE AB<1 <10 IU/mLPROMEDICAComment: ?? PERFORMED AT [address],[place] [address] Specimen (Source)Anatomical Location / LateralityCollection Method / Volume Collection TimeReceived Time01/22/2025 1:53 PM EDT01/22/2025 6:53 PM EDT Narrative Authorizing ProviderResult TypeResult StatusCindy Fentonerly NPLAB BLOOD ORDERABLESFinal ResultPerforming OrganizationAddressty/State/[facility] CodePhone Number [facility] * Thyroglobulin (01/22/2025 1:53 PM EDT)ComponentValueRef RangeTest Method Analysis TimePerformed AtPathologist IwgdacexqYDIXBRISISAIN44.2<=35.0 ng/mL [facility]OM[facility]ICATHYROGLOBULIN AB<1<4 IU/mLPROMEDICAComment: Quantitation of Thyroglobulin may be unreliable due to the presence of Anti-Thyroglobulin antibodies. The results cannot be interpreted as absolute evidence for the presence or absence of malignant disease. ?? PERFORMED AT [address],[place] [address] Specimen (Source)Anatomical Location / LateralityCollection Method / Volume Collection TimeReceived Time01/22/2025 1:53 PM EDT01/22/2025 6:53 PM EDT Narrative Authorizing ProviderResult TypeResult StatusCindy Handleyly NPLAB BLOOD ORDERABLESFinal ResultPerforming OrganizationAddressty/State/ZIP CodePhone Number [facility] * Progesterone (01/22/2025 1:53 PM EDT)ComponentValueRef RangeTest Method Analysis TimePerformed AtPathologist SignaturePROGESTERONE4.2ng/mL[facility] Comment: FEMALES: 1st Tri: ??4.7-50.7 ng/ml 2nd Tri: ??19.4-45.3 ng/ml MENSTRUATING FEMALES: Follicular: ??0.3-1.5 ng/ml Mid Luteal: ??5.2-18.6 ng/ml Post Sita: <0.1-0.8 ng/ml ?? PERFORMED AT [address],[place] [address] Specimen (Source)Anatomical Location / LateralityCollection Method / Volume Collection TimeReceived Time01/22/2025 1:53 PM EDT01/22/2025 6:53 PM EDT Narrative Authorizing ProviderResult TypeResult StatusCindy Esteban AskerLAB BLOOD ORDERABLESFinal ResultPerforming OrganizationAddressty/State/ZIP CodePhone Number [facility] * (ABNORMAL) DHEA-sulfate (01/22/2025 1:53 PM EDT)ComponentValueRef RangeTest MethodAnalysis TimePerformed AtPathologist SignatureDHEA S344(H)19 - 231 ug/dL [facility]: ?? PERFORMED AT [place] [address] [facility],[place] [address] Specimen (Source)Anatomical Location / LateralityCollection Method / Volume Collection TimeReceived Time01/22/2025 1:53 PM EDT01/22/2025 6:53 PM EDT Narrative Authorizing ProviderResult TypeResult StatusCindy Esteban AskerKIOWA DISTRICT [facility] BLOOD ORDERABLESFinal ResultPerforming OrganizationAddressty/State/ZIP CodePhone Number [facility] * Estradiol (01/22/2025 1:53 PM EDT)ComponentValueRef RangeTest MethodAnalysis TimePerformed AtPathologist HscfbnwayZZQFRWSKK95.0pg/mLPROMEDICAComment: NON- FEMALES Mid follicular: 25-115 pg/mL Ovulatory [...] on estradiol recovery when using this assay. ?? PERFORMED AT [facility] [address],[place] [address] Specimen (Source)Anatomical Location / LateralityCollection Method / Volume Collection TimeReceived Time01/22/2025 1:53 PM EDT01/22/2025 6:53 PM EDT Narrative Authorizing ProviderResult TypeResult StatusCindy Esteban NPLAB BLOOD ORDERABLESFinal ResultPerforming OrganizationAddressCity/State/ZIP CodePhone Number [facility] * Cortisol, free (01/22/2025 1:53 PM EDT)ComponentValueRef RangeTest Method Analysis TimePerformed AtPathologist SignatureCORTISOL, FREE0.33ug/dL[facility]ICA Comment: 18 years of age and older: 8-10 a.m. collection: 0.21-1.04 ug/dL 4-6 p.m. collection: ??0.10-0.63 ug/dL INTERPRETIVE INFORMATION: Cortisol, Free by Equilibrium ?Dialysis/LC-MS/MS This test was developed and its performance characteristics determined by [facility]. It has not been cleared or approved by the US Food and Drug Administration. This test was performed in a CLIA certified laboratory and is intended for clinical purposes. Performed By: [facility] [address] [place] [address] Strap Making Machine Operator: Margarito Dorantes MD, PhD CLIA Number: [id number] Specimen (Source)Anatomical Location / LateralityCollection Method / Volume Collection TimeReceived Time01/22/2025 1:53 PM EDT01/22/2025 6:53 PM EDT Narrative Authorizing ProviderResult TypeResult Tejas Esteban NPLAB BLOOD ORDERABLESFinal ResultPerforming OrganizationAddressCity/State/ZIP CodePhone Number [facility] * T3, free (01/22/2025 1:53 PM EDT)ComponentValueRef RangeTest MethodAnalysis TimePerformed AtPathologist SignatureFREE T33.172.50 - 3.90 pg/mL[facility] Comment: ?? PERFORMED AT [address] [address] Specimen (Source)Anatomical Location / LateralityCollection Method / Volume Collection TimeReceived Time01/22/2025 1:53 PM EDT01/22/2025 6:53 PM EDT Narrative Authorizing ProviderResult TypeResult StatusCindy Esteban NPLAB BLOOD ORDERABLESFinal ResultPerforming OrganizationAddressCity/State/ZIP CodePhone Number [facility] * TSH (01/22/2025 1:53 PM EDT)ComponentValueRef RangeTest MethodAnalysis Time Performed AtPathologist SignatureFREE T40.820.61 - 1.60 ng/dLPROMEDICATSH0.60 0.49 - 4.67 uIU/mLPROMEDICAComment: ?? PERFORMED AT [address] [address] Specimen (Source)Anatomical Location / LateralityCollection Method / Volume Collection TimeReceived Time01/22/2025 1:53 PM EDT01/22/2025 6:53 PM EDT Narrative Authorizing ProviderResult TypeResult StatusCindy Esteban NPLAB BLOOD ORDERABLESFinal ResultPerforming OrganizationAddressty/State/ZIP CodePhone Number [facility] * Serotonin serum (01/22/2025 1:53 PM EDT)ComponentValueRef RangeTest Method Analysis TimePerformed AtPathologist SignatureSEROTONIN,RZN59682 - 220 ng/mL [facility]om[facility]: TEST INFORMATION: Serotonin, Serum This test was developed and its performance characteristics determined by [facility]. It has not been cleared or approved by the US Food and Drug Administration. This test was performed in a CLIA certified laboratory and is intended for clinical purposes. Performed By: [facility] [address] [place] [address] Strap Making Machine Operator: Margarito Dorantes MD, PhD CLIA Number: [id number] Specimen (Source)Anatomical Location / LateralityCollection Method / Volume Collection TimeReceived Time01/22/2025 1:53 PM EDT01/22/2025 6:53 PM EDT Narrative Authorizing ProviderResult TypeResult StatusCindy Fentonerly NPLAB BLOOD ORDERABLESFinal ResultPerforming OrganizationAddressCity/State/ZIP CodePhone Number [facility] * Hemoglobin A1c (01/22/2025 1:53 PM EDT)ComponentValueRef RangeTest Method Analysis TimePerformed AtPathologist SignatureHEMOGLOBIN A1C5.14.4 - 5.6 % [facility]AComment: ?ADA Guidelines ?Result ?HgbA1c ? Normal : ? less than 5.7 % ? Prediabetes : ?5.7 % ??to 6.4 % Diabetes : > 6.4 % ??Use with caution in patients with abnormal hemoglobin variants as ??the half-life of red blood cells and in vivo glycation rates are ??affected. AVERAGE CAVQTBP466aj/dLPROMEDICAComment: ?? PERFORMED AT [facility] [address],[place] [address] Specimen (Source)Anatomical Location / LateralityCollection Method / Volume Collection TimeReceived Time01/22/2025 1:53 PM EDT01/22/2025 6:53 PM EDT Narrative Authorizing ProviderResult TypeResult StatusCindy Esteban NPLAB BLOOD ORDERABLESFinal ResultPerforming OrganizationAddressCity/State/[facility] CodePhone Number [facility] * Ferritin (01/22/2025 1:53 PM EDT)ComponentValueRef RangeTest MethodAnalysis TimePerformed AtPathologist PndoyljvpCSRGRMBK76485 - 307 ng/mL[facility] Comment: ?? PERFORMED AT [address],[place] [address] Specimen (Source)Anatomical Location / LateralityCollection Method / Volume Collection TimeReceived Time01/22/2025 1:53 PM EDT01/22/2025 6:53 PM EDT Narrative Authorizing ProviderResult TypeResult StatusBennysumitjason FentonEulalia NPLAB BLOOD ORDERABLESFinal ResultPerforming OrganizationAddressCity/State/ZIP CodePhone Number [facility] * (ABNORMAL) Vitamin B12 (01/22/2025 1:53 PM EDT)ComponentValueRef RangeTest MethodAnalysis TimePerformed AtPathologist SignatureVITAMIN B12>1500(H)180 - 914 pg/mLPROMEDICAComment: ?? PERFORMED AT [address],[place] [address] Specimen (Source)Anatomical Location / LateralityCollection Method / Volume Collection TimeReceived Time01/22/2025 1:53 PM EDT01/22/2025 6:53 PM EDT Narrative Authorizing ProviderResult TypeResult StatusKristina Eulalia NPLAB BLOOD ORDERABLESFinal ResultPerforming OrganizationAddressCity/State/ZIP CodePhone Number [facility] from Last 3 Months Insurance
--- NOTE | 2025-03-28 08:56 | MM_ITS ---
Patient Name: MELVINA CORONADO MR#: [id number] : 1980 Exam Date: 03/28/2025 Ordering Doctor: DR TORRES ANAYA . RADIOLOGY REPORT PROCEDURE: MM TOMOSYNTHESIS SCREENING BI COMPARISON: MM TOMOSYNTHESIS SCREENING BI, 09/22/2023. MG MAMM SCREEN 3D MAGNO CAD, 05/13/2022. MG MAMM SCREEN 3D MAGNO CAD, 04/08/2021. INDICATIONS: Screening Calculator Name NCI Breast Cancer Risk Assessment Tool 5 Year Breast Cancer Risk 0.70% Lifetime Breast Cancer Risk 8.70% Personal Breast Cancer No Personal Ovarian Cancer No Treatments None Family Cancers Grandmother-maternal with lung cancer at age ~70; Grandfather-paternal with prostate/colon cancer at age ~70. LOCATION: [facility] BREAST COMPOSITION: The breasts are heterogeneously dense, which may obscure small masses. FINDINGS: RIGHT BREAST: No significant suspicious finding. Similar focal asymmetries are noted. LEFT BREAST: There is a new 6 mm focal asymmetry of the lateral aspect of the right breast 3.6 cm from the nipple at approximately the 3 o'clock position. DIAGNOSTIC CATEGORY 0--INCOMPLETE: NEED ADDITIONAL IMAGING EVALUATION. RECOMMENDATIONS: ADDITIONAL MAMMOGRAPHIC VIEWS REQUIRED: LEFT BREAST - follow-up with spot compressed views of the left breast and ultrasound if necessary is recommended. Dictated by: Thomas Harris MD on 03/28/2025 at 14:35 Approved by: Thomas Harris MD on 03/28/2025 at 14:39
--- OUTSIDE RECORDS SUMMARY | 2025-03-28 08:57 | XMS_ITS | CCD ---
Author Organization [facility] Care Team Providers Care School Psychological Examiner Name Role Phone DIVINE ., DR MACDONALD Admitting Unavailable DIVINE ., DR MACDONALD Attending Unavailable DIVINE ., DR MACDONALD Consulting Unavailable ZIEBER, DR BAR Katz Consulting Unavailable DIVINE ., DR MACDONALD Admitting Unavailable DIVINE ., DR MACDONALD Attending Unavailable DIVINE ., DR MACDONALD Consulting Unavailable Unavailable Primary Care Provider UnavailMary Rodrigez MD Primary Care Provider [phone] TORRES HASKINS Attending Unavailable TORRES HASKINS Attending Unavailable CINDY ESTEBAN Referring Unavailable MARY SCOTT Primary Care Unavailable Medications Current Medications MedicationDrug Class(es)DatesSig (Normalized)Sig (Original)Ethinyl Estradiol / Ferrous fumarate / Norethindrone (2 sources)EstrogenStart: 51-89-3112hknu 1 tablet by mouth once daily norethindrone-e.estradioL-iron 1 mg-20 mcg (24)/75 mg (4) capsule Take 1 tablet by mouth daily. 06/03/2021 Active Completed/Discontinued Medications MedicationDrug Class(es)DatesSig (Normalized)Sig (Original)Taysofy 1-20 MG- MCG(24) capsule (6 sources)Start: 06-30-2023 End: 07-52-3886yhjk 1 capsule by mouth once dailyTaysofy 1-20 MG-MCG(24) capsule Indications: Well woman exam with routine gynecological exam TAKE 1CAPSULE BY MOUTH EVERY DAY 84 capsule 6 06/30/2023 10/14/2024 Discontinued (Other)Start: 54-29-4792ogfe 1 capsule by mouth once dailyTaysofy 1-20 MG-MCG(24) capsule Indications: Well woman exam with routine gynecological exam TAKE 1CAPSULE BY MOUTH EVERY DAY 84 capsule 6 06/30/2023 Active Problems Active Problems Problem ClassificationProblemDateDocumented DateEpisodic/ChronicCalculus of urinary tract (3 sources)Kidney stone; Translations: [Calculus of kidney]Onset: 06-10-2021 31-43-0893OkepeuecAggauk of cervix (1 source)Atypical squamous cells of undetermined significance on cervical Papanicolaou smear; Translations: [Atypical squamous cells of undetermined significance on cytologic smear of cervix (ASC-US)]66-24-4337Fvuztpea Immunizations and screening for infectious disease (3 sources)Encounter for screening for human papillomavirus (HPV); Translations: [Encounter for screening for infections with a predominantly sexual mode of transmission]Onset: 232649-87-1518CpcwfjavPpnyk endocrine disorders (1 source)Disorder of endocrine system; Translations: [Endocrine disorder, unspecified]85-31-1175QcqqhexxTqfqr endocrine disorders (1 source)Endocrine disorder, unspecified; Translations: [Endocrine disorder, unspecified]Onset: 21-84-4463ArhvinfaXvyjg female genital disorders (1 source)Other specified noninflammatory disorders of vagina; Translations: [OTH SPEC NONINFLAMMATORY D/O VAGINA]Onset: 16-63-8133EsskpulzRzafj female genital disorders (1 source)Vaginal discharge; Translations: [Other specified noninflammatory disorders of vagina]25-68-9866WrmhrsjtUnedw screening for suspected conditions (not mental disorders or infectious disease) (9 sources)Encounter for screening for malignant neoplasm of cervix; Translations: [Encounter for screening mammogram for malignant neoplasm of breast]Onset: 29-17-0147NxsgnnfdQfiwbtsr codes; unclassified (1 source)Family history of malignant neoplasm of trachea, bronchus and lung; Translations: [FAM HX MALIG NEOPLSM TRACH BRON LNG]Onset: 11-51-5716Nzayrtca Residual codes; unclassified (1 source)Family history of malignant neoplasm of digestive organs; Translations: [FAM HX MALIG NEOPLASM DIGESTIV ORGN]Onset: 82-95-1240Vyffmflx Past or Other Problems Problem ClassificationProblemDateDocumented DateEpisodic/ChronicContraceptive and procreative management (8 sources)Patient encounter status; Translations: [Encounter for other general counseling and advice on contraception]Onset: 336328-93-8571Mdswdekf Results Test NameValueInterpretationReference RangeFacilityC-PEPTIDE, Son 27-21-3832N- PEPTIDE, S3.5 ng/mLNormal1.1-4.4Coshocton Regional Medical CenterComment on above: Result Comment: ADDITIONAL INFORMATION Reference interval applies to fasting patients. Test Performed by: [facility] [place] [address] Air Moving Technician: Shanelle Parra Ph.D.; CLIA# [id number] By: #### THYR #### [facility] ([facility]) [address] [place] [address] VIRDHEA-SULFATEon 83-70-2544ZMLF S344 ug/yZNtdf45-400JkpFoscsuAdventhealthComment on above:Performed By: #### DHEAS #### [facility] ([facility]) [address] [place] [address] VIRDIHYDROXYVITAMIN D 1-25, Son 51,25-DIHYDROXYVITAMIN D, S35 pg/qKLypqyx44-18FvrBhwfebAdventhealthComment on above:Result Comment: ADDITIONAL INFORMATION This test was developed and its performance characteristics determined by [facility] in a manner consistent with CLIA requirements. This test has not been cleared or approved by the U.S. Food and Drug Administration. Test Performed by: [place] [address] Air Moving Technician: Shanelle Parra Ph.D.; CLIA# [id number] By: #### THYR #### [facility] ([facility]) [address] [place] [address] VIRESTRADIOLon 26-28-2007WRFJTBOQR63.0 pg/mLNormalProAdventhealthComascension st. [facility] on above:Order Comment: NON- FEMALES Mid follicular: 25-115 pg/mLOvulatory Peak: 32.1-517 pg/mLMid Luteal: 36.5-246 pg/mLPost-Menopausal Females: <15.0-25.1 pg/mL(Not on hormone therapy) The Access Sensitive Es tradiol assay resultsare not intended to be used to measure theeffectiveness of exogeneous Estradiolsupplementation, for example, when the patientis on hormone replacement therapy.The presence of estradiol drug analogues andtheir metabolites could have an impact onestradiol recovery when using thisassay. Performed By: #### THYR #### [facility] ([facility]) [address] [place] [address] KIPRONRicki Tesfaye 98-31-8937JCKAOMY,S76 pg/mLNormalProAdventhealthComascension st. [facility] on above:Result Comment: REFERENCE VALUE Premenopausal :17-200 Postmenopausal : 7-40 ADDITIONAL INFORMATION This test was developed and its performance characteristics determined by [facility] in a manner consistent with CLIA requirements. This test has not been cleared or approved by the U.S. Food and Drug Administration. Test Performed by: [facility] [address] [place] [address] Air Moving Technician: Shanelle Parra Ph.D.; CLIA# [id number] By: #### THYR #### [facility] ([facility]) [address] [place] [address] VIRFERRITINon 62-69-9203Wimfsiup [Mass/Vol]103 ng/mLNormal 11-307ProAdventhealthComment on above:Performed By: #### FERR #### [facility] ([facility]) [address] [place] [address] VIRGLUCOSE RANDOM OR FASTINGon 99-54-5236Qhsrooc [Mass/Vol]80 mg/rTVmseib09-99SpzWjhhdwCoshocton Regional Medical CenterComment on above:Performed By: #### GLU #### [facility] ([facility]) [address] [place] [address] VIRHEMOGLOBIN A1Con 75-30-4563Jztjfct [Mass/Vol]100 mg/dLNormal [facility] CenterComment on above:Performed By: #### THYR #### [facility] ([facility]) [address] [place] [address] EXBWyF0o (Bld) [Mass fraction]5.1 %Normal4.4-5.6Cos[facility] Regional Medical CenterComment on above:Result Comment: ADA Guidelines Result HgbA1c Normal : less than 5.7 % Prediabetes : 5.7 % to 6.4 % Diabetes : > 6.4 % Use with caution in patients with abnormal hemoglobin variants as the half-life of red blood cells and in vivo glycation rates are affected.Performed By: #### THYR #### [facility] ([facility]) [address] [place] [address] VIRINSULINon 46-39-6364BTQWDVM36.95 uIU/mLNormal1.00-23.[address] [facility] [address] [facility] on above:Order Comment: Ref. range is for FASTING NON-DIABETIC POPULATION.Performed By: #### THYR #### [facility] ([facility]) [address] [place] [address] VIRPROGESTERONEon 22-06-8386BODTOVGBPMWJ3.2 ng/mLNormal [facility] Medical CenterComment on above:Result Comment: FEMALES: 1st Tri: 4.7-50.7 ng/ml 2nd Tri: 19.4-45.3 ng/ml MENSTRUATING FEMALES: Follicular: 0.3-1.5 ng/ml Mid Luteal: 5.2-18.6 ng/ml Post Sita: <0.1-0.8 ng/ml Performed By: #### PRGST #### [facility] ([facility]) [address] [place] [address] VIRSEROTONIN SERUMon 72-17-5076CVAMQIBYX281 ng/lMZbrfnz53-457 [facility] Medical CenterComment on above:Result Comment: TEST INFORMATION: Serotonin, Serum This test was developed and its performance characteristics determined by [facility]. It has not been cleared or approved by the US Food and Drug Administration. This test was performed in a CLIA certified laboratory and is intended for clinical purposes. Performed By: [facility] [address] [place] [address] Garage Supervisor: Margarito Dorantes MD, PhD [facility] Number: [id number] By: #### THYR #### [facility] ([facility]) [address] [place] [address] VIRSEX HORMONE BINDING GLOBULINon 42-18-7806CLX HORMONE BINDING LJBFESFK29.4 nmol/MHktuxp83.2-135.5ProMedPico Rivera Medical CenterComascension [facility] on above: Result Comment: PT TYPE AGE RANGE MALES 20-50Y 13.3-89.5 mmol/L FEMALES 20-46Y 18.2-135.5 mmol/L FEMALES POSTMENO 47-91Y 16.8-125.2 mmol/LPerformed By: #### SHBG #### [facility] ([facility]) [address] [place] [address] VIRT3 REVERSE, Son 99-32-6425P8(TRIIODOTHYRONINE), REVERSE, S24 ng/tWBjgyyb47-81XnxGfiieuAdventhealthComment on above:Result Comment: ADDITIONAL INFORMATION This test was developed and its performance characteristics determined by [facility] in a manner consistent with CLIA requirements. This test has not been cleared or approved by the U.S. Food and Drug Administration. Test Performed by: [facility] [address] [place] [address] Air Moving Technician: Shanelle Parra Ph.D.; CLIA# [id number] By: #### THYR #### [facility] ([facility]) [address] [place] [address] VIRT3, FREEon 95-97-1385Tvvz T3 [Mass/Vol]3.17 pg/mLNormal 2.50-3.90ProAdventhealthComment on above:Performed By: #### FT3 #### [facility] ([facility]) [address] [place] [address] VIRTESTOSTERONE, FREE AND TOTAL, FEMALE OR CHILDRENon 49-84-9562OIIZ TESTOSTERONE, FEMALE OR CHILDREN3.2 pg/mLNormal1.1-5.8ProAdventhealthComment on above:Result Comment: REFERENCE INTERVAL: Testosterone, Free by Underwear Trimmer Females Postmenopausal: 0.6 - 3.8 pg/mL INTERPRETIVE INFORMATION: Testosterone, Free by Underwear Trimmer Free testosterone concentration is calculated using total testosterone (measured by mass spectrometry) and the binding constant of testosterone and sex hormone-binding globulin (SHBG). For individuals on testosterone-suppressing hormone therapies (e.g., antiandrogens or estrogens), refer to cisgender female reference intervals. For a complete set of all established reference intervals, refer to [employer]/Tests/Pub/[id number]. This test was developed and its performance characteristics determined by [facility]. It has not been cleared or approved by the US Food and Drug Administration. This test was performed in a CLIA certified laboratory and is intended for clinical purposes. Performed By: [facility] [address] [place] [address] Garage Supervisor: Margarito Dorantes MD, PhD CLIA Number: [id number] By: #### THYR #### [facility] ([facility]) [address] [place] [address] VIRSEX HORMONE BINDING GLOBULIN, FEMALE OR JGNXKPKB81 nmol/L Pyxjvq50-414NhbEgrggtCoshocton Regional Medical CenterComment on above:Result Comment: REFERENCE INTERVAL: Sex Hormone Binding Globulin Access complete set of age- and/or gender-specific reference intervals for this test in the [employer] Test Directory ([employer]).Performed By: #### THYR #### [facility] ([facility]) [address] [place] [address] VIRTESTOSTERONE, FEMALE OR LTZKTGCH41 ng/dLNormal9-55[facility] Medical CenterComment on above:Result Comment: REFERENCE INTERVAL: Testosterone by Underwear Trimmer Females Premenopausal 9-55 ng/dL Postmenopausal 5-32 ng/dL INTERPRETIVE INFORMATION: Testosterone by Underwear Trimmer Free or bioavailable testosterone measurements may provide supportive information. For individuals on testosterone-suppressing hormone therapies (e.g., antiandrogens or estrogens), refer to cisgender female reference intervals. For a complete set of all established reference intervals, refer to [employer]/Tests/Pub/[id number]. This test was developed and its performance characteristics determined by [employer]. It has not been cleared or approved by the US Food and Drug Administration. This test was performed in a CLIA certified laboratory and is intended for clinical purposes.Performed By: #### THYR #### [facility] ([facility]) [address] [place] [address] VIRTESTOSTERONE, TOTAL AND FREE, Son 08-68-1793DIROBTVDLHCP, TOTAL AND FREE, STESTF TESTOSTERONE, TOTAL AND FREE, S CancelledNormalCoshocton Regional Medical CenterTHYROGLOBULIN QUANTITATIVE W/ANTIBODY (TUMOR MARKER)on 65-48-6676FPSSJUOANJDOU80.2 ng/mLNormal<=35.0ProAdventhealthComment on above:Order Comment: Quantitation of Thyroglobulin may beunreliable due to the presence ofAnti-Thyroglobulin antibodies. The resultscannot be interpreted as absolute evidencefor the presence or absence of malignant disease.Performed By: #### THYR #### [facility] ([facility]) [address] [place] [address] VIRTHYROGLOBULIN AB<^1Normal<4ProAdventhealthComment on above:Order Comment: Quantitation of Thyroglobulin may beunreliable due to the presence ofAnti-Thyroglobulin antibodies. The resultscannot be interpreted as absolute evidencefor the presence or absence of malignant disease.Performed By: #### THYR #### [facility] ([facility]) [address] [place] [address] VIRTHYROID PEROXIDASE ANTIBODYon 11-71-5002IWE Ab Qn[IU]/mL Normal<10ProAdventhealthComment on above:Performed By: #### TPO #### [facility] ([facility]) [address] [place] [address] VIRTHYROID PROFILE INCLUDES TSH FT4on 17-06-1374Hmon T4 [Mass/Vol]0.82 ng/dLNormal0.61-1.60[facility] Medical CenterComment on above: Performed By: #### THYR #### [facility] ([facility]) [address] [place] [address] VIRTSH0.60 uIU/mLNormal0.49-4.67[facility] Comment on above:Performed By: #### THYR #### [facility] ([facility]) [address] [place] [address] VIRVITAMIN B12on 51-35-6335Bwmslcfuw (Vitamin B12) [Mass/Vol] pg/gWNkau221-552ZfyAwhyeyOhio State Harding HospitalComment on above:Performed By: #### B12 #### [facility]) [address] [place] [address] VIRIGP,APTIMA HPV,AGE GDLNon 34-30-4302BEJ GDLN ACOG TESTING Note.NOMS HealthcareComment on above:TESTS RESULT FLAG UNITS REF RANGE LAB Clinician Provided Cytology Information Source.............Cervix;Endocervix No. of containers..01 ThinPrep Vial Age Algo ACOG Lily... FLAG LEGEND: L-Low Normal,H-High Normal,LL-Alert Low,HH-Alert High <-Panic Low,>-Panic High,A-Abnormal,AA-Critical Abnormal Performed at: 01 =G [address] [address] Hamida Rodríguez MD, HPV APTIMAPositiveAbnormalNegativeNOMS HealthcareComment on above:This nucleic acid amplification test detects fourteen high- risk HPV types (16,18,31,33,35,39,45,51,52,56,58,59,66,68) without differentiation. HPV GENOTYPE 16NegativeNegativeNOMS HealthcareHPV GENOTYPE 18,45NegativeNegative NOMS HealthcareComment on above:Performed at: =G - [facility]zaUnion [place], [place] [id number] Air Moving Technician: Hamida Rodríguez MD, Phone: [phone] Performed at: - [facility], [place] [address] Air Moving Technician: Hamida Rodríguez MD, Phone: [phone] IGP, APTIMA HPV, RFX 16/18,45Note.NOMS HealthcareComment on above:TESTS RESULT FLAG UNITS REF RANGE LAB DIAGNOSIS: 02 NEGATIVE FOR INTRAEPITHELIAL LESION OR MALIGNANCY. REACTIVE CELLULAR CHANGES AND/OR REPAIR ARE PRESENT. Specimen adequacy: 02 Satisfactory for evaluation. Endocervical and/or squamous metaplastic cells (endocervical component) are present. Performed by: Ana Islas, Research Home Economist ([facility]) Electronically si... 02 Thom Toledo MD, Pathologist . 02 Note: Note 02 The Pap smear is a screening test designed to aid in the detection of premalignant and malignant conditions of the uterine cervix. It is not a diagnostic procedure and should not be used as the sole means of detecting cervical cancer. Both false-positive and false-negative reports do occur. Test Methodology: Note 02 This liquid based ThinPrep(R) pap test was screened with the use of an image guided system. HPV Genotype Reflex Note 02 Criteria met, see HPV Genotype results. FLAG LEGEND: L-Low Normal,H-High Normal,LL-Alert Low,HH-Alert High <-Panic Low,>-Panic High,A-Abnormal,AA-Critical Abnormal Performed at: [address] [place] [address] Hamida Rodríguez MD, Interpretation and review of laboratory resultsAbnoAmerican Academic Health System BRUSH-SPATULA CERVIX ENDOCERVIX CLINISYNCNOSSM Health [facility] Glenn[facility] Children's HospitalPAP IG, APT HPV RFX 16/18,45on 29-12-6556TPY APTIMA PositiveAbnormalNegativeUINTAH BASIN MEDICAL CENTER HealthcareComment on above:This nucleic acid amplification test detects fourteen high- risk HPV types (16,18,31,33,35,39,45,51,52,56,58,59,66,68) without differentiation. Performed at: - [address] [id number] Air Moving Technician: Hamida Rodríguez MD, Phone: [phone] Performed at: = - [address] [id number] Air Moving Technician: Hamida Rodríguez MD, Phone: [phone] Interpretation and review of laboratory resultsAbnoAmerican Academic Health SystemPAP IG (IMAGE GUIDED)NoteAbnormal.NOMS HealthcareComment on above:TESTS RESULT FLAG UNITS REF RANGE LAB Clinician Provided Cytology Information Source.............Cervix;Endocervix No. of containers..01 ThinPrep Vial DIAGNOSIS: [A] 01 EPITHELIAL CELL ABNORMALITY. LOW GRADE SQUAMOUS INTRAEPITHELIAL LESION (LSIL). ATYPICAL SQUAMOUS CELLS, CANNOT EXCLUDE HIGH-GRADE SQUAMOUS INTRAEPITHELIAL LESION (ASC-H). Specimen adequacy: 01 Satisfactory for evaluation. Endocervical and/or squamous metaplastic cells (endocervical component) are present. Performed by: Danielle Rodríguez, Division Commander ([facility]) Electronically si... Maddi Parada MD, Pathologist . 01 Pathologist [...] <-Panic Low,>-Panic High,A-Abnormal,AA-Critical Abnormal Performed at: [address] [facility] [address] [address] Hamida Rodríguez MD, BRUSH-SPATULA CERVIX ENDOCERVIX CLINISYNCNOMS HealthcareURETHRITIS/DISCHARGE PLUS VAGINITIS (HTRX)on 02-20-2024 ATOPOBIUM HJGYMCS7HXOV HealthcareATOPOBIUM VAGINAENot detectedNOMS Healthcare BVAB 2,3 (BACTERIAL VAGINOSIS ASSOCIATED BACTERIA 2, 3); MOBILUNCUS TYL7AVZC HealthcareBVAB 2,3 (BACTERIAL VAGINOSIS ASSOCIATED BACTERIA 2, 3); MOBILUNCUS SPPNot detectedNOMS HealthcareCANDIDA ALBICANS, PARAPSILOSIS, TPESPSPFCY1EYBU HealthcareCANDIDA ALBICANS, PARAPSILOSIS, TROPICALISNot detectedNOMS Healthcare LAUREEN UAEKTQCR6ZGZH HealthcareCANDIDA GLABRATANot detectedNOMS Healthcare LAUREEN JHBDWF7DFAP HealthcareCANDIDA KRUSEINot detectedNOMS HealthcareCHLAMYDIA NIUGZBURAWH9XFVO HealthcareCHLAMYDIA TRACHOMATISNot detectedNOMS Healthcare GARDNERELLA YHLAUUFQF7CHDD HealthcareGARDNERELLA VAGINALISNot detectedNOMS HealthcareMEGASPHAERA (TYPES 1, 2)0NOMS HealthcareMEGASPHAERA (TYPES 1, 2)Not detectedNOMS HealthcareMYCOPLASMA KCXPCASEXM3TUDZ HealthcareMYCOPLASMA GENITALIUMNot detectedNOMS HealthcareNEISSERIA ZRZNRLOWZHC1URQO Healthcare NEISSERIA GONORRHOEAENot detectedNOMS HealthcareTRICHOMONAS LDGAIQOFS5DSCG HealthcareTRICHOMONAS VAGINALISNot detectedNOMS HealthcareNOMS HealthcareMM TOMOSYNTHESIS SCREENING BIon 65-08-1758[place]ke[place] [address] Mammography Report Signed Patient: MELVINA CORONADO MR#: [id number] : 1980 Acct:[id number] Age/Sex: 43 / F ADM Date: 09/22/23 Loc: MAMMO Attending Dr: Torres Haskins D.O. Ordering Physician: Torres Haskins D.O. Results: Date of Service: 09/22/23 Follow Up: Procedure(s): MM tomosynthesis screening BI Accession Number(s): [id number] cc: Torres Haskins D.O.; Physician,Non-Staff M.DJacinta Patient Name: MELVINA CORONADO MR#: [id number] : 1980 Exam Date: 09/22/2023 Ordering Doctor: DR Torres Haskins . RADIOLOGY REPORT PROCEDURE: MM TOMOSYNTHESIS SCREENING BI COMPARISON: MG MAMM SCREEN 3D MAGNO CAD, 04/08/2021. MG MAMM SCREEN 3D MAGNO CAD, 05/13/2022. INDICATIONS: Screening Calculator Name NCI Breast Cancer Risk Assessment Tool 5 Year Breast Cancer Risk 0.60% Lifetime Breast Cancer Risk 8.80% Personal Breast Cancer No Personal Ovarian Cancer No Treatments None Family Cancers Grandmother-maternal with lung cancer at age 70; Grandfather-paternal with prostate/colon cancer at age 70. LOCATION: [facility] BREAST COMPOSITION: The breasts are heterogeneously dense,which may obscure small masses. FINDINGS: DIAGNOSTIC CATEGORY 2--BENIGN FINDING. NO CHANGE FROM COMPARISON. Scattered benign-appearing nodules are present. Scattered benign-appearing calcifications are present. Scattered benign-appearing lymph nodes are present. RIGHT BREAST: No significant suspicious finding. LEFT BREAST: No significant suspicious finding. RECOMMENDATIONS: ROUTINE MAMMOGRAM AND CLINICAL EVALUATION IN 12 MONTHS. PLEASE NOTE: A NORMAL MAMMOGRAM DOES NOT EXCLUDE THE POSSIBILITY OF BREAST CANCER. A CLINICALLY SUSPICIOUS PALPABLE LUMP SHOULD BE BIOPSIED. Dictated by: Naun Shetty MD on 09/22/2023 at 13:16 Approved by: Naun Shetty MD on 09/22/2023 at 13:18 Dictated By: Naun Shetty M.D. Signed By: 09/22/23 1319 DD/ 1318 TD/TT: Choir Accompanist:TBHRadiology, Radiologist, MD - 09/22/2023 [place] [address] Mammography Report Signed Patient: MELVINA CORONADO MR#: [id number] : 1980 Acct:[id number] Age/Sex: 43 / F ADM Date: 09/22/23 Loc: MAMMO Attending Dr: Torres Haskins D.O. Ordering Physician: Torres Haskins D.O. Results: Date of Service: 09/22/23 Follow Up: Procedure(s): MM tomosynthesis screening BI Accession Number(s): [id number] cc: Torres Haskins D.O.; Physician,Non-Staff Jasmina Patient Name: MELVINA CORONADO MR#: [id number] : 1980 Exam Date: 09/22/2023 Ordering Doctor: DR Torres Haskins . RADIOLOGY REPORT PROCEDURE: MM TOMOSYNTHESIS SCREENING BI COMPARISON: MG MAMM SCREEN 3D MAGNO CAD, 04/08/2021. MG MAMM SCREEN 3D MAGNO CAD, 05/13/2022. INDICATIONS: Screening Calculator Name NCI Breast Cancer Risk Assessment Tool 5 Year Breast Cancer Risk 0.60% Lifetime Breast Cancer Risk 8.80% Personal Breast Cancer No Personal Ovarian Cancer No Treatments None Family Cancers Grandmother-maternal with lung cancer at age 70; Grandfather-paternal with prostate/colon cancer at age 70. LOCATION: [facility] BREAST COMPOSITION: The breasts are heterogeneously dense,which may obscure small masses. FINDINGS: DIAGNOSTIC CATEGORY 2--BENIGN FINDING. NO CHANGE FROM COMPARISON. Scattered benign-appearing nodules are present. Scattered benign-appearing calcifications are present. Scattered benign-appearing lymph nodes are present. RIGHT BREAST: No significant suspicious finding. LEFT BREAST: No significant suspicious finding. RECOMMENDATIONS: ROUTINE MAMMOGRAM AND CLINICAL EVALUATION IN 12 MONTHS. PLEASE NOTE: A NORMAL MAMMOGRAM DOES NOT EXCLUDE THE POSSIBILITY OF BREAST CANCER. A CLINICALLY SUSPICIOUS PALPABLE LUMP SHOULD BE BIOPSIED. Dictated by: Naun Shetty MD on 09/22/2023 at 13:16 Approved by: Naun Shetty MD on 09/22/2023 at 13:18 Dictated By: Naun Shetty M.D. Signed By: 09/22/23 1319 DD/ 1318 TD/TT: Choir [facility] (narrative)[facility] TOMOSYNTHESIS SCREENING BIOrdered By: Radiologist Radiology on 79-54-4620DACJ [employer] Work Phone: pap ACOG PANEL 2: 30 to 65on 06-08-2022..NormalThe [facility] Medical CenterComment on above:Result Comment: Performed at: KWCYTPerformed By: #### [id number] #### [facility] [address] [place] [address] Dr. Kitty Arias Gdln ACOG Nauvkty34-92GncqruEqtBellevue HospitalComment on above:Performed By: #### [id number] #### [facility] [address] [place] [address] Dr. Kitty ArguelloDIAGNOSIS:CommentClinton Memorial HospitalComascension st. joseph hospital on above: Result Comment: NEGATIVE FOR INTRAEPITHELIAL LESION OR MALIGNANCY. Performed at: KWCYTPerformed By: #### [id number] #### [facility] [address] [place] [address] Dr. Kitty Herring AptimaPositiveAbnormalNegativeCommunity Memorial HospitalComment on above:Result Comment: This nucleic acid amplification test detects fourteen high-risk HPV types (16,18,31,33,35,39,45,51,52,56,58,59,66,68) without differentiation. Performed at: =GPerformed By: #### [id number] #### [facility] [address] [place] [address] Dr. Yilan ChangHPV Genotype 16PositiveAbnormalNegativeCommunity Memorial Hospital Comment on above:Performed By: #### [id number] #### [facility] [address] [place] [address] Dr. Kitty Herring Genotype 18,45NegativeBakersfieldNegativeCommunity Memorial Hospital Comment on above:Performed By: #### [id number] #### [facility] [address] [place] [address] Dr. Kitty CardenasV Genotype ReflexCommentNoBellevue HospitalComment on above:Result Comment: Criteria met, see HPV Genotype results. Performed at: KWCYTPerformed By: #### [id number] #### [facility] [address] [place] [address] Dr. Kitty Montielology:CommentSycamore Medical Center on above: Result Comment: This liquid based ThinPrep(R) pap test was screened with the use of an image guided system. Performed at: WBPerformed By: #### [id number] #### [facility] [address] [place] [address] Dr. Kitty ArguelloNote:CommentNoCenterville on above:Result Comment: The Pap smear is a screening test designed to aid in the detection of premalignant and malignant conditions of the uterine cervix. It is not a diagnostic procedure and should not be used as the sole means of detecting cervical cancer. Both false-positive and false-negative reports do occur. . Performed at: WBPerformed By: #### [id number] #### [facility] [address] [place] [address] Dr. Kitty Jollyformed by:CommentNoCenterville on above: Result Comment: Gene Robles Division Commander (ASCP) Performed at: KWCYTPerformed By: #### [id number] #### [facility] [address] [place] [address] Dr. Kitty Jackson adequacy:CommentSycamore Medical Center on above:Result Comment: Satisfactory for evaluation. Endocervical and/or squamous metaplastic cells (endocervical component) are present. Performed at: KWCYTPerformed By: #### [id number] #### [facility] [address] [place] [address] Dr. Kitty NeumannAMYDIA/GONOCOCCUS [facility] (SWAB/URINE/PAPon 96-49-1920Pfgvkgtfr gonorrhoeae, NAANegativeNormalNegativeCommunity Memorial HospitalComment on above: Performed By: #### CT/NGNA #### [facility] [address] [place] [address] Dr. Kitty Neumannamyyady trachomatis, NAANegativeNormalNegativeCommunity Memorial HospitalComment on above:Performed By: #### CT/NGNA #### [facility] [address] [place] [address] Dr. Kitty ArguelloVAGINITIS/VAGINOSIS DNA PROBEon 49-00-1902Lemsmuh speciesNegative NormalNegativeCommunity Memorial HospitalComment on above:Performed By: #### VAGINT #### [facility] [address] [place] [address] Dr. Kitty Renteriadnerella vaginalisNegativermncNegTrinity Health System [facility] Comment on above:Performed By: #### VAGINT #### [facility] [address] [place] [address] Dr. Kitty ArguelloTrichomonas vaginalisNegativeMosaic Life Care At St. JosephalNegativeCommunity Memorial Hospital Comment on above:Performed By: #### VAGINT #### [facility] [address] [place] [address] Dr. Kitty ArguelloMG MAMM SCREEN 3D MAGNO CADon 24-19-9405IO MAMM SCREEN 3D MAGNO CAD Patient: MELVINA CORONADO Exam Date: 05/13/2022 : 1980 Gender:F Ordering : DR TORRES HASKINS . Admission #: [id number] Family : Order #: [id number] CLICK HERE TO VIEW EXAM RADIOLOGY REPORT [...] prostate/colon cancer at age 70. LOCATION: [facility] BREAST COMPOSITION: Heterogeneously dense,which may obscure small [...] by: Bar Greenwood M.D. on 05/13/2022 at 09:18[facility] Vital Signs Date TimeVital SignValuePerforming UxpbohmufMzltjedw29-77-0073 14:16-0400Body mass index (BMI) [Ratio]25.15 kg/m4Tzrkb AtBizz DO Work Phone: [facility] CenterKvhfvxniwt80-31-6723 14:16-0400Body rkhiwx74.67 kgCorey Divine DO Work Phone: [phone] CenterKupsscfkvo90-98-8899 14:16-0400Diastolic blood ccdupooq31 mm[Hg]Torres Divine DO Work Phone: [facility] CenterOcdqhulxzt49-68-5141 14:16-0400Systolic blood rbcrwykx340 mm[Hg]Torres Divine DO Work Phone: [facility] CenterUusmcoagdx40-34-5172 09:05-0400Body mass index (BMI) [Ratio]25.66 kg/q2Uaogv Divine DO Work Phone: [facility] CenterVlukjlueqw55-18-3682 09:05-0400Body .12 kgCorey Divine DO Work Phone: [facility] CenterEthbvapyfu56-18-3856 09:05-0400Diastolic blood ssvvlisj14 mm[Hg]Torres Divine DO Work Phone: [facility] Zzomhuohcd40-79-3107 09:05-0400Systolic blood gdygnvfr801 mm[Hg]Torres Divine DO Work Phone: [facility] Encounters Encounter DateEncounter TypeCare ProviderFacilityStart: 19-78-6913bdrvsxtccz CINDY [facility] HospitalStart: 10-14-2024 End: 43-09-3804Czcgpk flowsheetCorey Divine DO Work Phone: [facility] BCP OBStart: 10-14-2024 End: 29-95-0282Atealg flowsheetCorey Divine DO Work Phone: [facility] BCP OBStart: 10-14-2024 End: 10-82-9313Pnnzysifr Result EncounterCorey Divine DO Work Phone: [facility] External Department UnsolicitedStart: 10-14-2024 End: 26-49-7774Riwzwzx encounter procedureCorey Divine DO Work Phone: [facility] Work Phone: Start: 10-14-2024 End: 57-76-4397Fpwqaawr preventive med est patient 40-64yrsCorey Divine DO Work Phone: [facility] BCP OBComment on above:Hormone disorder (Primary Dx); Well woman exam with routine gynecological exam; Breast cancer screening by mammogramStart: 10-14-2024 End: 57-55-5085phewhgmeetRMVEO FAZIONot AvailableStart: 07-05-2024 End: 26-38-5631Mqkxha OnlyGene Fan MD Work Phone: [facility] SurgeonsComment on above:Calculus of kidney (Primary Dx)Start: 02-19-2024 End: 74-55-8112Mmamru flowsheetCorey Divine DO Work Phone: [facility] BCP OBStart: 02-19-2024 End: 46-77-4324Xxvgtl flowsheetCorey Divine DO Work Phone: [facility] BCP OBStart: 02-19-2024 End: 70-87-3623Pihxazxif Result EncounterCorey Divine DO Work Phone: [facility] External Department UnsolicitedStart: 02-19-2024 End: 09-25-8887Aypaswpt Result EncounterCorey Divine DO Work Phone: [facility] External Department UnsolicitedStart: 02-19-2024 End: 40-17-1687Muyzxb outpatient visit 15 minutesCorey Divine DO Work Phone: [facility] BCP OBComment on above:ASCUS with positive high risk HPV cervical; Screen for STD (sexually transmitted disease); Vaginal discharge; Sterilization consultStart: 02-19-2024 End: 53-77-8669lcqocqrucuCBUEK FAZIONot AvailableStart: 09-22-2023 End: 22-13-5106Iswoyftxw Result EncounterCorey Divine DO Work Phone: [facility] External Department UnsolicitedStart: 09-22-2023 End: 81-51-6836Grtxtvnqk Result EncounterCorey Divine DO Work Phone: [facility] External Department UnsolicitedStart: 05-31-2022 End: 30-29-4278xvlennrtwzFS TORRES DIVINE .Facility:W1Xolmh: 05-13-2022 End: 09-06-8958aerdusrbokKI TORRES DIVINE .Facility: Procedures DateProcedureProcedure DetailPerforming ClinicianStart: 03-66-2030Qqosxfwp free CINDY EBERLYComment on above:Result Comment: 18 years of age and older: 8-10 a.m. collection: 0.21-1.04 ug/dL 4-6 p.m. collection: 0.10-0.63 ug/dL INTERPRETIVE INFORMATION: Cortisol, Free by Equilibrium Dialysis/LC-MS/MS This test was developed and its performance characteristics determined by [facility]. It has not been cleared or approved by the US Food and Drug Administration. This test was performed in a CLIA certified laboratory and is intended for clinical purposes. Performed By: [facility] [address] [place] [address] Garage Supervisor: Margarito Dorantes MD, PhD CLIA Number: [id number] By: #### DHEAS #### [facility] ([facility]) [address] [place] [address] VIRStart: 78-25-4835SIB,APTIMA HPV,AGE GDLNCorey Divine DO Work Phone: Start: 78-48-1773ZZU IG, APT HPV RFX 16/18,45Corey Divine DO Work Phone: Start: 42-12-2620XLQSGGHZTU/DISCHARGE PLUS VAGINITIS (HTRX)Torres Divine DO Work Phone: Start: 40-89-3540RI TOMOSYNTHESIS SCREENING BICorey Divine DO Work Phone: Plan of Treatment DateCare ActivityDetailAuthorStart: 12-17-2024 End: 71-03-0674Ulgiows encounter ntxwatgsn28/12/2025 3:15 PM EDT Office Visit [facility] [address] [place] [address] [place] [address] Gene Fan MD [address] [place] [address] [facility]Urinary SurgeonsStart: 10-14-2024 End: 52-18-2626X-peptideC-peptide Lab Routine Hormone disorder Expected: 10/14/2024 (Approximate), Expires: 10/14/2025NOMS HealthcareComment on above: Expected: 10/14/2024 (Approximate), Expires: 10/14/2025Start: 10-14-2024 End: 22-52-6857Ivofraeve (Vitamin B12) [Mass/volume] in Serum or PlasmaVitamin B12 Lab Routine Hormone disorder Expected: 10/14/2024 (Approximate), Expires: 10/14/2025N[facility] HealthcareComment on above:Expected: 10/14/2024 (Approximate), Expires: 10/14/2025Start: 10-14-2024 End: 94-61-5854Wpjmshqn freeCortisol, free Lab Routine Hormone disorder Expected: 10/14/2024 (Approximate), Expires: 10/14/2025N[facility] HealthcareComment on above:Expected: 10/14/2024 (Approximate), Expires: 10/14/2025Start: 10-14-2024 End: 22-23-6177Ejmyylh [Mass/volume] in Serum or PlasmaGlucose, random Lab Routine Hormone disorder Expected: 10/14/2024 (Approximate), Expires: 10/14/2025 [facility] HealthcareComment on above:Expected: 10/14/2024 (Approximate), Expires: 10/14/2025Start: 10-14-2024 End: 90-48-4341Lnrexyb, totalInsulin, total Lab Routine Hormone disorder Expected: 10/14/2024 (Approximate), Expires: 10/14/2025N[facility] HealthcareComment on above:Expected: 10/14/2024 (Approximate), Expires: 10/14/2025Start: 10-14-2024 End: 31-66-6786AG Breast - bilateral ScreeningBilateral screening mammogram Imaging Routine Breast cancer screening by mammogram Expected: 10/14/2024 (Approximate), Expires: 12/14/2025[facility] Work Phone: comment on above:Expected: 10/14/2024 (Approximate), Expires: 12/14/2025Start: 10-14-2024 End: 52-56-7773Orimxej encounter iszgvvjlx32/09/2025 2:00 PM EDT Procedure Visit [facility] [address] [place] [address] Torres Haskins, DO [address] [place] [address] ArrivedNOMS BCP OBComment on above:ArrivedStart: 10-14-2024 End: 32-75-9160Miqsngfks serumSerotonin serum Lab Routine Hormone disorder Expected: 10/14/2024 (Approximate), Expires: 10/14/2025N[facility] HealthcareComment on above:Expected: 10/14/2024 (Approximate), Expires: 10/14/2025Start: 10-14-2024 End: 42-54-9367OisdijipjdagfIkdnmlbzqvhvy Lab Routine Hormone disorder Expected: 10/14/2024 (Approximate), Expires: 10/14/2025N[facility] HealthcareComment on above: Expected: 10/14/2024 (Approximate), Expires: 10/14/2025Start: 10-14-2024 End: 44-86-1565Waotnckcwcwsd AntibodyThyroglobulin Antibody Lab Routine Hormone disorder Expected: 10/14/2024 (Approximate), Expires: 10/14/2025[facility] Comment on above:Expected: 10/14/2024 (Approximate), Expires: 10/14/2025Start: 10-14-2024 End: 69-48-0019Ipbhdbubstr [Units/volume] in Serum or PlasmaNOMS Healthcare Comment on above:Ordered: 10/14/2024Expected: 10/14/2024 (Approximate), Expires: 10/14/2025Start: 07-09-2024 End: 06-39-0627Vwdtoyj encounter albwxvqbr22/04/2025 11:45 AM EST Office Visit [facility] [address] [place] [address] Gene Fan MD [address] [place] [address] [facility] SurgeonsStart: 07-05-2024 End: 37-19-6535CY Abdomen APX-ray abdomen ap 1 view Imaging Routine Calculus of kidney Expected: 07/05/2024, Expires: 07/05/2025[facility] Work Phone: Comment on above:Expected: 07/05/2024, Expires: 07/05/2025Start: 03-25-2024 End: 41-84-4694Fvwkepg encounter yyxbgykex86/ 8:50 AM EST Consult [facility] [address] [place] [address] Torres Haskins, DO [address] [place] [address] [facility] OBStart: 02-19-2024 End: 47-19-0742Bwpuyjw encounter svgjjxglu05/14/2024 8:50 AM EDT Procedure Visit [facility] [address] [place] [phone] Torres Haskins, DO [address] [place] [address] [facility]rivedMOUNTAIN [facility]IEW [facility] OBComment on above:ArrivedStart: 31-40-0539Gabtbjaxv vaccinationInfluenza VaccineProWilson Street Hospital SystemStart: 29-48-1349Qeedv BMI ScreeningAdult BMI ScreeningSalem Regional Medical Center SystemStart: 69-31-9264Aqzqcxe ScreeningTobacco ScreeningSalem Regional Medical Center SystemStart: 32-53-8628Ophyydmsy for malignant neoplasm of cervixPap SmearSalem Regional Medical Center SystemStart: 33-08-1582QEjR,Tdap and Td Vaccines (1 - Tdap)DTaP,Tdap and Td Vaccines (1 - Tdap)[facility] SystemStart: 93-45-7030Psbqsdlbpt Screening Depression ScreeningBrown Memorial HospitalCHLAMYDIA TRACHOMATIS (GENITO/STI) CHLAMYDIA TRACHOMATIS (GENITO/STI) Lab Routine Screen for STD (sexually transmitted disease) Vaginal discharge Ordered: 02/19/2024NOND HealthcareComment on above:Ordered: 02/19/20246144GSIG-plwmepiBKRW-iswlkzm Lab Routine Hormone disorder Ordered: 10/14/2024[facility] HealthcareComment on above:Ordered: 10/14/2024 EstradiolEstradiol Lab Routine Hormone disorder Ordered: 10/14/2024[facility] Work Phone: comment on above:Ordered: 10/14/2024EstroneEstrone Lab Routine Hormone disorder Ordered: 10/14/2024[facility] HealthcareComment on above: Ordered: 10/14/2024Ferritin [Mass/volume] in Serum or PlasmaFerritin Lab Routine Hormone disorder Ordered: 10/14/2024[facility] HealthcareComment on above:Ordered: 10/14/2024Hemoglobin A1c/Hemoglobin.total in BloodHemoglobin A1c Lab Routine Hormone disorder Ordered: 10/14/2024[facility] HealthcareComment on above:Ordered: 10/14/2024Neisseria gonorrhoeae DNA [Presence] in Unspecified specimen by [facility] with probe detectionNeisseria gonorrhea DNA probe, direct Lab Routine Screen for STD (sexually transmitted disease) Vaginal discharge Ordered: 02/19/2024[facility] HealthcareComment on above:Ordered: 02/19/2024rogesteroneProgesterone Lab Routine Hormone disorder Ordered: 10/14/2024[facility] HealthcareComment on above: Ordered: 10/14/2024Sex hormone binding globulinSex hormone binding globulin Lab Routine Hormone disorder Ordered: 10/14/2024[facility] HealthcareComment on above: Ordered: 10/14/2024SURESWAB(R) ADVANCED VAGINITIS PLUS, TMASURESWAB(R) ADVANCED VAGINITIS PLUS, TMA Pathology and Cytology Routine Screen for STD (sexually tra nsmitted disease) Vaginal discharge Ordered: 02/19/2024[facility] HealthcareComment on above:Ordered: 02/19/2024T3, reverseT3, reverse Lab Routine Hormone disorder Ordered: 10/14/2024[facility] HealthcareComment on above:Ordered: 10/14/2024 TESTOSTERONE, FREETESTOSTERONE, FREE Lab Routine Hormone disorder Ordered: 10/14/2024[facility] HealthcareComment on above:Ordered: 10/14/2024Testosterone, free, totalTestosterone, free, total Lab Routine Hormone disorder Ordered: 10/14/2024 [facility] HealthcareComment on above:Ordered: 10/14/2024THIN PREP TIS PAP AND HR HPV DNATHIN PREP TIS PAP AND HR HPV DNA Pathology and Cytology Routine ASCUS with positive high risk HPV cervical Ordered: 02/19/2024[facility] Healthcare Work Phone: comment on above:Ordered: 02/19/2024THIN PREP TIS PAP AND HR HPV DNATHIN PREP TIS PAP AND HR HPV DNA Pathology and Cytology Routine Well woman exam with routine gynecological exam Ordered: 10/14/2024[facility] HealthcareComment on above:Ordered: 10/14/2024Thyroid peroxidase antibodyThyroid peroxidase antibody Lab Routine Hormone disorder Ordered: 10/14/2024[facility] HealthcareComment on above:Ordered: 10/14/2024Thyroxine (T4) free [Mass/volume] in Serum or PlasmaT4, free Lab Routine Hormone disorder Ordered: 10/14/2024[facility] HealthcareComment on above:Ordered: 10/14/2024Triiodothyronine (T3) Free [Mass/volume] in Serum or PlasmaT3, free Lab Routine Hormone disorder Ordered: 10/14/2024[facility] HealthcareComment on above:Ordered: 10/14/2024Vitamin D 1,25 dihydroxyVitamin D 1,25 dihydroxy Lab Routine Hormone disorder Ordered: 10/14/2024[facility] HealthcareComment on above:Ordered: 10/14/2024 Immunizations Immunization DateImmunizationNotesCare TwsltukmMfyeudkv13-07-9390vytysbizd virus vaccine, unspecified formulationGene Fan MD Work Phone: [facility] Payers DatePayer CategoryPayerPolicy [id number] Care O (unspecified) [id number] Managed Care - [facility] Member Subscriber Plan / Payer (Effective 2019-Present) Name: Melvina Coronado MemberID: [id number] Relation to Subscriber: Self Name: Melvina Coronado Payer ID: Not on file Type: Not on file Address: [address] [id number] 2..[id number] 2..[id number] 2..[id number] Social History DateTypeDetailFacilityStart: 01-10-2023 End: 77-60-5740Rltbehw smoking status NHISEx-smokerNOMS HealthcareHistory of tobacco useCurrent smokerNOMS HealthcareHistory of tobacco useCigarette Smoker [facility] HealthcareStart: 08-10-2023 End: 76-05-9785Hhybjevly beverage intakeCurrent drinker of alcohol (finding)[facility] HealthcareStart: 01-19-2023 End: 78-79-0793Hndcndi of Social functionNOMS HealthcareStart: 01-19-2023 End: 50-72-4042Wemwaci use panelNOMS HealthcareStart: 48-95-2877Iandxsd Comment Occasional alcohol useNOMS HealthcareStart: 97-94-7291Anz assigned at birthNot on fileNOMS HealthcareStart: 06-68-7085Kobpotv smoking status NHISNever smoked tobaccoMarietta Osteopathic Clinicca Health SystemStart: 77-01-3400Urerfzl use and exposureSmokeless tobacco non-userMarietta Osteopathic Clinicca Health SystemStart: 61-66-3502DxwkmlwywRrjpvmd [facility] SystemStart: 70-37-1919KvkDcnfqu (finding)[facility] Clinical Notes 02-19-2024 to 10-14-2024 Note Date & NummDnzfSxjapido82-89-5719 History of Present illness Narrative* Cindy Esteban NP - 10/14/2024 2:00 PM EDT Reason for Appointment: Patient ID: Melvina Coronado [...] Date APPENDECTOMY 1991 DERMOID CYST EXCISION 1991 MAMMOGRAPHY 05/13/2022 negative PAP SMEAR 06/21/2016 negative [...] nursing note reviewed. Exam conducted with a donor specialist present. Vitals: Estimated body mass index is [...] otherwise. Hx of LGSIL + will continue tomonitor PAP if continues LGSIL the plan is to move forward with leep procedure. Patient reports generalized fatigue and hot flashes and would like hormone levels evaluated. Buderer labs will be obtain as well as a B12 level. Documented by Cindy Esteban NP on behalf of: Torres Haskins DO documented in this encounterOzarks Medical CenterIaykzaaskw67-98-5528 Miscellaneous Notes* Telephone Encounter - Vannessa Rodriguez LPN - 07/05/2024 9:[address] Fan, Pt. Has appt with you on 07-09-24. Last office visit notes states that she needs a KUB and to return in 2 years for follow up. Last KUB was 06/27/2023, do you need an updated KUB for the appt on Monday? If so, if you order the KUB, I will give her a call. Please advise, thank you, Vannessa * Telephone Encounter - Gene Fan MD - 07/05/2024 9:11 AM EST She needs a kub. Order placed * Telephone Encounter - Vannessa Rodriguez LPN - 07/05/2024 9:11 AM EST Thank you. I attempted to contact her and received a recording stating that her mailbox is full at this time. Unable to leave a voicemail. Will try again. * Telephone Encounter - Vannessa Rodriguez LPN - 07/05/2024 9:11 AM EST Contacted the Pt. Again. Pt. Did answer, after informing her of the new KUB ordered, she stated that she was going to have to reschedule as she thought her appt was on Monday. 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 Pt. Was rescheduled to 12-17-24 at 3:15 pm she said she should be able to get that day off since it is so far ahead of time. No other questions at this time. documented in this encounterBrown Memorial Hospital02-28-2025 Telephone encounter Note* Telephone Encounter - Vannessa Rodriguez LPN - 07/05/2024 9:[address] Fan, Pt. Has appt with you on 07-09-24. Last office visit notes states that she needs a KUB and to return in 2 years for follow up. Last KUB was 06/27/2023, do you need an updated KUB for the appt on Monday? If so, if you order the KUB, I will give her a call. Please advise, thank you, Vannessa [facility]02-28-2025 Telephone encounter Note* Telephone Encounter - Gene Fan MD - 07/05/2024 9:11 AM EST She needs a kub. [facility] Qodpxg24-15-8625 Telephone encounter Note* Telephone Encounter - Vannessa Rodriguez LPN - 07/05/2024 9:11 AM EST Thank you. I attempted to contact her and received a recording stating that her mailbox is full at this time. Unable to leave a voicemail. Will try again. [facility] [employer] [id number] Telephone encounter Note* Telephone Encounter - Vannessa Rodriguez LPN - 07/05/2024 9:11 AM EST Contacted the Pt. Again. Pt. Did answer, after informing her of the new KUB ordered, she stated that she was going to have to reschedule as she thought her appt was on Monday. 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 Pt. Was rescheduled to 12-17-24 at 3:15 pm she said she should be able to get that day off since it is so far ahead of time. No other questions at this time. [facility] [employer] [id number] History of Present illness Narrative* Viky Benavides LPN - 02/19/2024 8:50 AM EDT Reason for Appointment: Patient ID: Melvina Coronado [...] nursing note reviewed. Exam conducted with a donor specialist present. Vitals: Estimated body mass index is [...] of: Torres Haskins DO documented in this encounterNOND HealthcareEvaluation note* Diagnosis ASCUS with positive high risk HPV cervical Screen for STD (sexually transmitted disease) Screening examination for venereal disease Vaginal discharge Leukorrhea, not specified as infective Sterilization consult Other general counseling and advice for contraceptive management documented in this encounter [facility]* Diagnosis Calculus of kidney- Primary documented in this encounter [facility] SystemEvaluation note* Diagnosis Hormone disorder- Primary Unspecified endocrine disorder Well woman exam with routine gynecological exam Routine gynecological examination Breast cancer screening by mammogram documented in this encounter [facility] HealthcareInstructionsNot on filedocumented in this [facility] SystemInstructionsNot on filedocumented in this [facility] Purpose Family History No Family History Records FoundNo Family History Records FoundNo Family History Records Found Advance Directives No Advanced Directives Records FoundNo Advanced Directives Records FoundNo Advanced Directives Records Found Additional Source Comments INFORMATION SOURCE (unrecogn ized section and content) DATE CREATED AUTHOR 07/18/2022 [facility] DATE CREATED AUTHOR AUTHOR'S ORGANIZ ATION 10/15/2024 [facility] DATE CREATED AUTHOR AUTHOR'S ORGANIZ ATION 02/08/2025 [facility] Reason for Visit (unrecogniz ed section and content) ReasonCommentsAbnormal Pap SmearReasonCommentsWell Women Visit Care Teams (unrecognized sec tion and content) Team MemberRelationshipSpecialtyStart DateEnd Date Mary Scott MD PCP - [facility]06/15/21Team MemberRelationshipSpecialtyStart DateEnd Date Mary Scott MD PCP - [facility]06/15/21 FOR RECORDS PERTAINING TO PATIENTS WHO ARE [...] BE BASED ON THE PRIMARY CLINICAL RECORDS. [employer] [facility]. provides no warranty or guarantee of the accuracy or completeness of information in this document.
== END 2025-03-28 08:53 | disposition home or self-care (01) ==
LOC: MAMMO 08:52
PROVIDERS: Visit Provider Obstetrics & Gynecology
DX: Z12.31 Encounter for screening mammogram for malignant neoplasm of breast (principal); Z80.1 Family history of malignant neoplasm of trachea, bronchus and lung; Z80.42 Family history of malignant neoplasm of prostate; Z80.0 Family history of malignant neoplasm of digestive organs; R92.8 Other abnormal and inconclusive findings on diagnostic imaging of breast
CPT/HCPCS: 77063; 77067